=== PATIENT | male | born 1935 | race Caucasian/White ===

== ENCOUNTER 2018-02-21 14:04 | Inpatient (IN) | payer MEDICARE ==
[2018-02-21 14:26] LABS: Actual Bicarbonate (HCO3a) 21.3 mEq/L (22-28); Base Excess (BEa) -4.9 mEq/L (-2.0 to +3.0); CO2 Tension 44.7 mmHg (35.0-45.0); O2 Tension (PaO2) 169.3 mmHg (> 60.0)
[2018-02-21 14:27] LABS: Analyzer IN Cardio ER; Calcium, Ionized 1.1 mmol/L (1.12-1.30); Hemoglobin (Hb) 9.6 g/dL (14.0-18.0); Puncture Site RBA
[2018-02-21 14:28] LABS: ALV-art Gradient 202.625 (0-20)
[2018-02-21] MEDS ORDERED: fentaNYL Citrate/PF 2,000 MCG in Sodium Chloride 0.9% 60 ML IV SCH ×2 (14:30→17:30)
[2018-02-21 14:41] LABS: Bilirubin Negative (Negative); Blood, Urine Large (Negative); Clarity CLOUDY (Clear); Glucose, Urine (Dipstick) Negative (Negative); Leukocyte Small (Negative); Nitrite Negative (Negative); Protein, Urine (Dipstick) 100 mg/dL (Neg-Trace); Specific Gravity, Urine 1.012 (1.002-1.036); Urobilinogen 0.2 mg/dL (0.2-1.0); pH, Urine 5.5 (5.0-9.0)
[2018-02-21 14:45] LABS: Bacteria/HPF None Seen HPF (None Seen); Squamous Epithelial 0-3 HPF (0-3)
[2018-02-21 14:47] LABS: Pathc Cast-AUWi Flag 2.61 (0-2.49); Yeast-AUWi Flag 50.1 (0-25.0)
[2018-02-21 14:58] LABS: INR-International Normal Ratio 1.3; PTT 38.8 SEC (22.9-36.1); Prothrombin Time 16.6 SEC (12.0-14.7)
[2018-02-21 15:01] LABS: Hyaline Casts/LPF 0-3 HYALINE CAST LPF (0-3 Hyaline); Transitional Epithelial 0-3 HPF (0-3); Yeast-All Forms None Seen HPF (None Seen)
[2018-02-21 15:11] LABS: ALT (SGPT) 10 U/L (8-55); AST (SGOT) 17 U/L (5-34); Albumin 2.6 g/dL (3.4-4.8); Alkaline Phosphatase 91 U/L (40-150); Anion Gap 12 mmol/L (10-20); BUN (Urea Nitrogen) 19 mg/dL (8.4-25.7); Bilirubin, Total 0.9 mg/dL (0.2-1.2); CK (CPK) 138 U/L (30-200); Calc. Creatinine Clearance 0 mL/min (70-130); Calcium 7.8 mg/dL (7.8-10.44); Carbon Dioxide 20 mmol/L (23-31); Chloride 109 mmol/L (98-107); Estimated GFR-MDRD 34; Globulin 3.1 g/dL (2.4-3.5); Glucose 171 mg/dL (83-110); Lipase Less than 4 U/L (8-78); Potassium 3.6 mmol/L (3.5-5.1); Protein, Total 5.7 g/dL (5.8-8.1); Sodium 137 mmol/L (136-145)
[2018-02-21 15:13] LABS: #Lymphocytes 0.7 thou/uL (1.20-3.40); #Monocytes 1.1 thou/uL (0.11-0.59); #Neutrophils 10.5 thou/uL (1.40-6.50); %Basophils 0.1 % (0.0-1.0); %Eosinophils 0.2 % (0.0-10.0); %Lymphocytes 5.3 % (21.0-51.0); %Monocytes 8.8 % (0.0-10.0); %Neutrophils 85.6 % (42.0-75.0); Hemoglobin 9.8 g/dL (14.0-18.0); MDiff Complete? YES; Mean Corpuscular HGB CONC 31.8 g/dL (32.0-36.0); Mean Corpuscular Hemoglobin 30.7 pg (27.0-31.0); Mean Corpuscular Volume 96.4 fl (80.0-94.0); Mean Platelet Volume 9.3 fL (7.4-10.4); PLT Morphology Comment Appears Decreased; Platelet Count 111 thou/uL (130-400); Polychromasia SLIGHT = 2-3 cells (100X) (0-2/hpf); RBC Distribution Width 13.3 % (11.5-14.5); Red Blood Cell (RBC) Count 3.19 mill/uL (4.70-6.10); White Blood Cell (WBC) Count 12.3 thou/uL (4.8-10.8)
[2018-02-21 15:19] LABS: CKMB 3.7 ng/mL (0-6.6)
[2018-02-21 15:30] LABS: Troponin I 0.305 ng/mL (< 0.028)
[2018-02-21] MEDS ORDERED: Aspirin 300 MG Suppository ONE (15:34)
[2018-02-21] MEDS ORDERED: Furosemide 40 MG/4 ML VIAL ONE ×2 (15:34→15:35)
[2018-02-21] MEDS ORDERED: Enoxaparin Sodium 80 MG/0.8 ML SYRINGE ONE (15:34)
[2018-02-21] MEDS ORDERED: Enoxaparin Sodium 40 MG/0.4 ML SYRINGE ONE (15:34)
--- NOTE | 2018-02-21 15:35 | RAD ---
FRONTAL RADIOGRAPH CHEST PORTABLE UPRIGHT: DATE: 02/21/18. COMPARISON: 03/22/17. HISTORY: Fever, sepsis, intubated patient. FINDINGS: An endotracheal tube is in place, the distal tip terminating approximately 3.6 cm above the landy. Midline sternotomy wires and mediastinal clips are present. There is no pneumothorax seen. There is hazy increased density in the left base with partial obscuration of the left hemidiaphragm s uggesting left basilar volume loss and/or infectious pneumonitis within the left lower lobe. IMPRESSION: Endotracheal tube in place. Hazy increased density is seen in the left base which could represent in filtrate or volume loss. Followup advised. POS: [facility]
--- NOTE | 2018-02-21 15:53 | RAD ---
FRONTAL RADIOGRAPH CHEST: 02/21/18 at 2:21 p.m. COMPARISON: 02/21/18 at 1:43 p.m. HISTORY: Nausea and vomiting. FINDINGS: Endotracheal tube present in stable position. No pneumothorax is noted. There is pulmonary vascular congestion. Supine imaging is provided, limiting assessment for pneumotho rax and pleural fluid. There is hazy increased density in the left base suggesting nonspecific left basilar volume loss or i nfiltrate. Tubing curls over the neck suggesting a nasogastric tube curling in the hypopharynx. IMPRESSION: Nasogastric tube curls over the neck. Increased density in left base noted. Results called to Dr. Kong at 3:15 p.m., 02/21/18. Code CR POS: [facility]
--- NOTE | 2018-02-21 16:18 | RAD ---
PORTABLE SUPINE CHEST: 02/21/18 HISTORY: Nausea, vomiting. COMPARISON: 02/21/18 at 2:21 p.m. FINDINGS/IMPRESSION: ET tube remains in place. NG tube has been placed and tip is not visualized on this exam. The cardiomegaly with vascular congestion and opacification of both lung bases again noted. No interv al change in the appearance of the chest. POS: [facility]
--- NOTE | 2018-02-21 16:59 | PDOC.FPRHP ---
- History of Present Illness Chief Complaint: confusion History of Present Illness: PCP: Dr. Pedro Luis Dhaliwal, [place], [place] Specialists: Cardiology, Dr. Corcoran. Neurology, Dr. Martinez Ghosh ( [facility]) 82 yo CM w/ PMH of Alzheimer's dementia, pAfib, AAA, CAD s/p 4vCABG, HTN, DM, HLD and recent history of accidental falls presenting as transfer from [facility] due to severe sepsis and established care at this hospital. Pt is accompanied by granddaughter who is MPOA and provides entire HPI. Pt lives at home with a daughter and the granddaughter notes that over the last 2 weeks, he has become progressively more confused. They initially thought it was secondary to a worsening of his dementia. About 1 week ago, the pt had an accidental fall and an additional accidental fall a few days ago. Granddaughter denies LOC or change in mental status at the time. Over the weekend, the pt began developing a fever and symptoms concerning for a UTI. The patient was taken to his PCP this morning and immediately told to present to ER due to fever up to 102, confusion, and abnormal vitals. The granddaughter endorses confusion, fever/ chills, recent falls, and BL lower extremity swelling. At [facility] ED, pt was evaluated by Dr. Kirk Hays. Please refer to paper chart for complete records. In short, pt presented with BP 83/59 HR 116 R 23 O2 sat 86% RA and Tmax 104 rectal. EKG showed afib rate 120s and RBBB. CBC, CMP, lactic acid, BNP, troponin, UA were ordered. Pt was found to have lactate of 4.3 , BNP 3122, WBC 13, and UA suggestive of infection (Nitrite+, LE neg, WBC 10-19 , Squam rare, Bacteria many). CT Head showed no acute process. CXR showed enlarged cardiac silhouette and bibasilar opacities likely atelectasis. Pt was reportedly intubated due to being combative and interfering with medical equipment. Pt was given 2L NS, tylenol 1g, furosemide 80 mg IV, zosyn 4.5g, vancomycin 2.5g, etomidate 38mg, succinylcholine 100mg. At some point, pt removed his ETT and required to be intubated again. He was initially placed on sedation with propofol but could not tolerate it due to hypotension. The patient was then placed on fentanyl. Pt was transferred here due to having established care previously. ED Course: Pt was seen by Dr. Kong. Labs were reordered. Pt was given ASA 300 mg rectal, furosemide 40 mg IV, lovenox 1 mg/kg, levaquin 750 mg, 500 mL NS, and fentanyl 1 mcg/kg/hr. - Allergies/Adverse Reactions Allergies Allergy/AdvReac Type Severity Reaction Status Date / Time epinephrine Allergy Verified 03/23/17 01:04 rosuvastatin Allergy Verified 03/23/17 01:04 Wwyjzre-Mbj-Alk Reductase Allergy Verified 03/23/17 01:04 Inhibitor - Home Medications Medication Instructions Recorded Confirmed Type Aspirin [Aspirin Chewable Tablet] 81 mg PO DAILY 03/23/17 03/23/17 History Atenolol 25 mg PO DAILY 03/23/17 03/23/17 History Cyanocobalamin 1000 MCG/ML VIA 1,000 mg IM Q7DAYS 03/23/17 03/23/17 History [Vitamin B-12] DULoxetine HCl [Duloxetine HCl] 60 mg PO BID 03/23/17 03/23/17 History Donepezil HCl 10 mg PO DAILY 03/23/17 03/23/17 History Dulaglutide [Trulicity] 1.5 mg SC Q7DAYS 03/23/17 03/23/17 History Ezetimibe [Zetia] 10 mg PO DAILY 03/23/17 03/23/17 History Gabapentin 300 mg PO QAM 03/23/17 03/23/17 History Gabapentin 600 mg PO QPM 03/23/17 03/23/17 History Memantine HCl [Namenda XR] 28 mg PO DAILY 03/23/17 03/23/17 History Tramadol HCl 50 mg PO Q6H PRN 03/23/17 03/23/17 History carBAMazepine [carBAMazepine ER] 300 mg PO 03/23/17 03/23/17 History rOPINIRole HCl [Ropinirole ER] 1 tab PO QAM 03/23/17 03/23/17 History rOPINIRole HCl [Ropinirole ER] 3 tab PO QPM 03/23/17 03/23/17 History Levofloxacin [Levaquin] 500 mg PO 0600 #5 tab 03/27/17 Rx - History PMHx: 1. AAA 2. Alzheimer's dementia 3. Nocturnal seizures 4. pAfib 5. History of falls 6. Venous stasis ulcers BL 7. HTN 8. DM2 9. HLD 10. Spinal stenosis 11. CAD s/p 4vCABG 12. OA PSHx: 1. 4vCABG 1997 2. R hip arthroplasty 3. L hip arthroplasty x3 4. Cholecystectomy 5. Appendectomy 6. Hernia repair FHx: Noncontributory Social: Former smoker, denied EtOH and illicit drugs - Review of Systems ROS unobtainable: other (see HPI) - Vital signs BP: 112/81 HR: 86 RR: 20 Tmax: 104 rectal Pox: 99% on SIMV 12/500/50/5 Wt: 127kg - Physical Exam Constitutional: NAD, other (intubated and sedated) HEENT: no scleral icterus, other (ecchymosis to chin and occiptal scalp. ETT secured in place.) Neck: no bruits Heart: normal S1/S2, other (irregularly irregular, distant heart sounds. 2+ edema BLLE up to knees) Lungs: other (distant adventitious breath sounds BL) Abdomen: soft, non-tender, bowel sounds present, other (obese) Neurological: other (GCS 3) Skin: other (venous stasis ulcer RLE, sacral ulcer) Heme/Lymphatic: other (multiple areas of ecchymosis) FMR H&P: Results - Labs Result Diagrams: 02/22/18 06:12 02/22/18 04:20 Lab results: WBC 12.3 thou/uL (4.8-10.8) H 02/21/18 14:26 Hgb 9.8 g/dL (14.0-18.0) L 02/21/18 14:26 Hct 30.7 % (42.0-52.0) L 02/21/18 14:26 MCV 96.4 fl (80.0-94.0) H 02/21/18 14:26 Plt Count 111 thou/uL (130-400) L 02/21/18 14:26 Neutrophils % 85.6 % (42.0-75.0) H 02/21/18 14:26 ABG pH 7.30 (7.35-7.45) L 02/21/18 14:22 ABG pCO2 44.7 mmHg (35.0-45.0) 02/21/18 14:22 ABG pO2 169.3 mmHg (> 60.0) H 02/21/18 14:22 Sodium 137 mmol/L (136-145) 02/21/18 14:27 Potassium 3.6 mmol/L (3.5-5.1) 02/21/18 14:27 Chloride 109 mmol/L (98-107) H 02/21/18 14:27 Carbon Dioxide 20 mmol/L (23-31) L 02/21/18 14:27 BUN 19 mg/dL (8.4-25.7) 02/21/18 14:27 Creatinine 1.92 mg/dL (0.6-1.3) H 02/21/18 14:27 Glucose 171 mg/dL (83-110) H 02/21/18 14:27 Lactic Acid 3.3 mmol/L (0.5-2.2) H 02/21/18 14:40 Calcium 7.8 mg/dL (7.8-10.44) 02/21/18 14:27 Total Bilirubin 0.9 mg/dL (0.2-1.2) 02/21/18 14:27 AST 17 U/L (5-34) 02/21/18 14:27 ALT 10 U/L (8-55) 02/21/18 14:27 Alkaline Phosphatase 91 U/L (40-150) 02/21/18 14:27 Creatine Kinase 138 U/L (30-200) 02/21/18 14:27 CK-MB (CK-2) 3.7 ng/mL (0-6.6) 02/21/18 14:26 B-Natriuretic Peptide 3670.2 pg/mL (0-100) H 02/21/18 14:26 Serum Total Protein 5.7 g/dL (5.8-8.1) L 02/21/18 14:27 Albumin 2.6 g/dL (3.4-4.8) L 02/21/18 14:27 Lipase Less than 4 U/L (8-78) L 02/21/18 14:27 Urine Ketones Negative mg/dL (Negative) 02/21/18 14:11 Urine Blood Large (Negative) H 02/21/18 14:11 Urine Nitrite Negative (Negative) 02/21/18 14:11 Ur Leukocyte Esterase Small (Negative) H 02/21/18 14:11 Urine RBC 11-20 HPF (0-3) H 02/21/18 14:11 Urine WBC 11-20 HPF (0-3) H 02/21/18 14:11 Ur Squamous Epith Cells 0-3 HPF (0-3) 02/21/18 14:11 Urine Bacteria None Seen HPF (None Seen) 02/21/18 14:11 - EKG Interpretation EKG: Afib with RVR, rate 104. RBBB. QT 394ms. FMR H&P: A/P - Problem List (1) Severe sepsis Current Visit: Yes Status: Acute Code(s): A41.9 - SEPSIS, UNSPECIFIED ORGANISM; R65.20 - SEVERE SEPSIS WITHOUT SEPTIC SHOCK Assessment and Plan: -pt presented with fever, tachycardia, hypotension, altered mentation, leukocytosis, lactic acidosis and UA suggestive of infection -pt has received 2.5L NS bolus to this point. Continue LR@125. -pt has received vancomycin, zosyn, and levaquin and is covered for 24 hrs considering his kidney function. With UTI being the most likely source, will continue zosyn. With concern of possible PNA on CXR, will check urine strep antigen and procalcitonin. Blood and urine cultures pending. -pt currently intubated and on sedation. Continue ventilatory support and sedation per pulmonology, recommendations greatly appreciated. -trend lactate (2) Lactic acidosis Current Visit: Yes Status: Resolved Code(s): E87.2 - ACIDOSIS Assessment and Plan: -IVF and trend (3) UTI (urinary tract infection) Current Visit: Yes Status: Acute Qualifiers: Urinary tract infection type: site unspecified Comment: history of pansensitive proteus Assessment and Plan: -per above (4) Acute exacerbation of CHF (congestive heart failure) Current Visit: Yes Status: Acute Code(s): I50.9 - HEART FAILURE, UNSPECIFIED Qualifiers: Heart failure type: unspecified Qualified Code(s): I50.9 - Heart failure, unspecified Assessment and Plan: -pt has a history of CAD and afib but no known history of CHF. pt presents with pulmonary vascular congestion on CXR, lower extremity edema, and BNP > 3000. -consult cardiology, recommendations greatly appreciated -TTE ordered -pt has received 120mg lasix IV thus far, continue lasix 40 mg IV BID starting tomorrow -strict I/O's and daily weights (5) Atrial fibrillation with RVR Current Visit: Yes Status: Acute Code(s): I48.91 - UNSPECIFIED ATRIAL FIBRILLATION Assessment and Plan: -known history of pAfib on atenolol 25 mg daily -pt received therapeutic lovenox in ED -currently in afib but rate 80-120 -continue prophylactic lovenox in AM -cardiology recommendations greatly appreciated (6) Elevated troponin Current Visit: Yes Status: Acute Code(s): R74.8 - ABNORMAL LEVELS OF OTHER SERUM ENZYMES Assessment and Plan: -likely demand ischemia, trend cardiac enzymes (7) Nocturnal seizures Current Visit: Yes Status: Acute Code(s): G40.909 - EPILEPSY, UNSP, NOT INTRACTABLE, WITHOUT STATUS EPILEPTICUS Assessment and Plan: -continue home tegretol and check tegretol level (8) CKD (chronic kidney disease) stage 3, GFR 30-59 ml/min Current Visit: Yes Status: Acute Code(s): N18.3 - CHRONIC KIDNEY DISEASE, STAGE 3 (MODERATE) (9) Macrocytic anemia Current Visit: Yes Status: Acute Code(s): D53.9 - NUTRITIONAL ANEMIA, UNSPECIFIED Assessment and Plan: -slightly decreased from baseline -obtain folate, B12 and continue to monitor (10) Diabetes mellitus Current Visit: Yes Status: Acute Code(s): E11.9 - TYPE 2 DIABETES MELLITUS WITHOUT COMPLICATIONS Assessment and Plan: -accuchecks and SSI (11) Alzheimer's dementia Current Visit: Yes Status: Acute Code(s): G30.9 - ALZHEIMER'S DISEASE, UNSPECIFIED; F02.80 - DEMENTIA IN OTH DISEASES CLASSD ELSWHR W/O BEHAVRL DISTURB - Plan Disposition/LOS: Patient admitted under inpatient status for anticipated length of stay > 2 midnights. CODE STATUS is DNR per patient's MPOA. Continue to monitor closely. Attending Addendum - Attending Addendum Date/Time: 02/22/18 1112 I personally evaluated the patient and discussed the management with Dr. Aguirre I agree with the History, Examination, Assessment and Plan documented above with any addition or exceptions noted below. Severe sepsis without evidence of shock. Currently intubated. Tolerating vent well. Appears to likely be urinary source. Has been broadly covered with emperic antibiotics. Will consider de-scaling in AM with trend of labs and prelim cultures. Pulm consulted. Continue IVFs. Concern with worsening physical condition due to frequent falls. Dispo planning to be discussed with family throughout stay. Monitor closely. Yousif
[2018-02-21] MEDS ORDERED: Ondansetron ODT 4 MG TAB PO PRN (17:12)
[2018-02-21] MEDS ORDERED: Dextrose 50% Abboject 50 ML SYRINGE SLOW IVP PRN (17:12)
[2018-02-21] MEDS ORDERED: Ondansetron HCl/PF 4 MG/2 ML Vial IVP PRN (17:12)
[2018-02-21] MEDS ORDERED: Ventilator Sedation Protocol 1 EACH FS ONE (17:12)
[2018-02-21] MEDS ORDERED: CCU Electrolyte Replacement 1 EACH FS ONE (17:12)
[2018-02-21] MEDS ORDERED: HumaLOG 300 UNITS/3 ML VIAL SC PRN ×2 (17:12)
[2018-02-21] MEDS ORDERED: Dextrose 5% in Water 1,000 ML IV PRN (17:12)
[2018-02-21] MEDS ORDERED: Acetaminophen 650 MG Suppository PR PRN (17:12)
[2018-02-21] MEDS ORDERED: Potassium Phosphate 15 MMOL in Sodium Chloride 0.9% 250 ML 250 ML IV PRN (17:19)
[2018-02-21] MEDS ORDERED: Potassium Chloride 40 MEQ in Sodium Chloride 0.9% 250 ML 250 ML IVPB PRN (17:19)
[2018-02-21] MEDS ORDERED: Magnesium 2 GM/NS 0.9% 100 ML 2 GM in Premix Bag 1 BAG IVPB PRN (17:19)
[2018-02-21] MEDS ORDERED: Potassium Phosphate 9 MMOL in Sodium Chloride 0.9% 100 ML IVPB PRN (17:19)
[2018-02-21] MEDS ORDERED: Potassium Chloride 40 MEQ in Premix Bag 1 BAG IVPB PRN (17:19)
[2018-02-21] MEDS ORDERED: Potassium Chloride 20 MEQ TAB PO PRN (17:19)
[2018-02-21] MEDS ORDERED: Potassium Phosphate 12 MMOL in Sodium Chloride 0.9% 250 ML 250 ML IV PRN (17:19)
[2018-02-21] MEDS ORDERED: CCU ELECTROLYTE REPLACEMENT PROTOCOL FS PRN (17:19)
[2018-02-21] MEDS ORDERED: Magnesium Oxide 400 MG TAB PO PRN ×2 (17:19)
[2018-02-21] MEDS ORDERED: DISCONTINUE PREVIOUS NARCOTIC PAIN MEDICATIONS AND BENZODIAZEPINES FS SCH (17:27)
[2018-02-21] MEDS ORDERED: Propofol BOLUS 1,000 MG/100 ML VIAL IV PRN (17:27)
[2018-02-21] MEDS ORDERED: Propofol 1,000 MG/100 ML VIAL IV PRN (17:27)
[2018-02-21] MEDS ORDERED: Lorazepam 2 MG/ML VIAL SLOW IVP PRN ×2 (17:27→21:44)
[2018-02-21] MEDS ORDERED: Fentanyl BOLUS 250 ML IVPB PRN (17:27)
[2018-02-21] MEDS ORDERED: Morphine 4 MG/ML VIAL SLOW IVP PRN (17:27)
[2018-02-21] MEDS ORDERED: Piperacillin/Tazobactam 2.25 GM in Sodium Chloride 0.9% 100 ML IVPB SCH (18:00)
[2018-02-21 18:05] LABS: Strep pneumo Urine Ag NEGATIVE (NEGATIVE)
[2018-02-21] MEDS: carBAMazepine 200 MG TAB PER TUBE SCH (18:20)
[2018-02-21] MEDS ORDERED: Lactated Ringer's 1,000 ML IV SCH ×2 (18:30→18:31)
[2018-02-21 18:35] LABS: Carbamazepine-Tegretol 7.6 ug/mL (4.0-12.0)
[2018-02-21] MEDS: Piperacillin/Tazobactam 2.25 GM in Sodium Chloride 0.9% 100 ML IVPB SCH ×2 (18:52→23:39)
[2018-02-21] MEDS ORDERED: Digoxin 0.5 MG/2 ML AMP SLOW IVP SCH (20:15)
[2018-02-21] MEDS: Heparin 5,000 UNITS/ML VIAL SC SCH (20:33)
[2018-02-21] MEDS: Acetaminophen 325 MG TAB PO PRN (20:55)
[2018-02-21] MEDS ORDERED: Prevnar 13-Val Conj/PF 0.5 ML SYRINGE IM ONE (21:00)
[2018-02-21] MEDS ORDERED: Lorazepam 2 MG/ML VIAL SLOW IVP SCH (21:45)
[2018-02-21] MEDS: Lorazepam 2 MG/ML VIAL SLOW IVP PRN ×2 (23:37→23:53)
[2018-02-22] MEDS: Labetalol HCl 100 MG/20 ML VIAL SLOW IVP PRN (00:01)
--- NOTE | 2018-02-22 00:06 | CON ---
DATE OF CONSULTATION: 02/21/2018 SERVICE: Pulmonary Medicine. REASON FOR CONSULTATION: Respiratory failure. HISTORY OF PRESENT ILLNESS: The patient is an 82-year-old white male with past medical history significant for advanced dementia. Whenever he comes into the hospital, he becomes extraordinarily agitated. He pulls on lines and tubes. He removes his own Mary catheters. He was in his usual state of health until about a week and a half ago. His baseline is that he can barely walk with assistance. He has significant dyspnea on exertion, and back pain that limits his mobility. He is essentially confined to a bed or a chair. In this setting , he started having altered mentation for a period of a week. This sometimes occurs, but he started having elevated temperatures. He presented to the primary care physician's office and was obtunded and nonverbal. As such, he was transitioned to the emergency room. At that location, he was having absolutely no difficulties with respiration. That being said, he became a little bit agitated. Ultimately, he was sedated and intubated for ease of delivering needed IV medications. PAST MEDICAL HISTORY: 1. Dementia, advanced. 2. Nocturnal seizures. 3. Atrial fibrillation, permanent. 4. Type 2 diabetes mellitus. 5. Hypertension. 6. Dyslipidemia. 7. Spinal stenosis. 8. Coronary artery disease. 9. Osteoarthritis. 10. History of multiple falls. 11. Abdominal aortic aneurysm. PAST SURGICAL HISTORY: 1. Coronary artery bypass graft x4 vessels in 1997. 2. Right hip arthroplasty. 3. Left hip arthroplasty x3. 4. Cholecystectomy. 5. Appendectomy. 6. Herniorrhaphy. FAMILY HISTORY: Noncontributory. SOCIAL HISTORY: He has a remote history of extensive smoking. He does not use any alcohol or illicit drugs. He is cared for by his granddaughter. He lives in a home, but has assistance basically 11/04. He and his are both suffered with dementia. He can occasionally be aggressive. REVIEW OF SYSTEMS: This cannot be obtained as the patient is currently intubated and sedated. PHYSICAL EXAMINATION: VITAL SIGNS: Afebrile, pulse 107, blood pressure 125/80, respirations 24, saturation 95% on 37% FiO2 and a PEEP of 5. HEENT: Normocephalic, atraumatic. Sclerae are white, conjunctivae pink. Oral and nasal mucosa is moist without lesions. LUNGS: Decent air entry bilaterally. There is not much of a prolonged expiratory phase, wheezing, rhonchi, or crackles. HEART: Normal rate, regular. ABDOMEN: Soft, nontender, nondistended. Bowel sounds are positive. MUSCULOSKELETAL: No cyanosis or clubbing. There are 1-2+ pitting in the bilateral lower extremities with chronic ulcers present on the medial aspects of both legs. GENITOURINARY: Mary catheter in place. NEUROLOGIC: Grossly nonfocal. LABORATORY DATA: WBC 12.3, hemoglobin 9.8, platelets 111,000. INR 1.3. PH of 7.30, pCO2 of 44, pO2 of 169 on 60% FiO2 at that time. Creatinine 1.92, which is slightly above baseline. Basic metabolic profile and liver function studies are otherwise unremarkable. BNP 3600. Troponin 0.3. Lipase less than 4. Urinalysis is positive for blood, and leukocyte esterase, but is not too terribly dirty. Urine strep antigen is unremarkable. IMAGING: Chest x-ray demonstrates cardiomegaly and pulmonary vascular congestion with opacification of both lung bases. ET tube is in good position. ASSESSMENT: 1. Acute hypoxic respiratory failure. 2. Severe sepsis. 3. Non-ST elevation myocardial infarction. 4. Chronic kidney disease with possible acute component. 5. Dementia, advanced. 6. Debility. PLAN: We will provide the patient with supportive care. We will try to minimize fluids to the best of our ability. We will consider him for extubation in a short period of time. Antibiotics will ultimately be directed at whatever we find from our cultures which are currently pending. Multiple ventilator adjustments have been made in order to maximize patient comfort. We will try to minimize sedation without allowing him to wake up and be too terribly agitated. Critical care time: 30 minutes. MTDD
--- NOTE | 2018-02-22 02:12 | CON ---
DATE OF CONSULTATION: 02/21/2018 HISTORY: Miki Caraballo is an 82-year-old white male admitted with weakness and mental status changes, transferred from [facility] in [place]. In 08/1998 , he underwent CABG here by Dr. Mina. His last cardiac evaluation was an echocardiogram in 10/2016, which revealed ejection fraction of 40%-45% with moderate mitral regurgitation, mild tricuspid regurgitation, and evidence for diastolic dysfunction. He also underwent Lexiscan Cardiolite testing in 10/2016 , which revealed mild ischemia with scar of the inferior and lateral wall corresponding to previous total occlusion of the right coronary artery that was found at catheterization prior to bypass. He was last seen by Dr. Corcoran in 09/2017 for surgical clearance prior to an ENT balloon procedure using topical anesthesia. Recently, he has been having accidental falls and increased weakness. He has also had increasing confusion over the last 2 weeks. He again developed a fever , went to see his primary physician this morning, had a fever up to 102 and was confused, and sent to the emergency room. His blood pressure was 83/59, heart rate 116 with chronic atrial fibrillation. Urinalysis was suggestive of urinary tract infection. He was intubated due to being combative and interfering with medical equipment. He was given Zosyn 4.5 grams, vancomycin 2.5, and placed on propofol sedation after he self-extubated himself requiring re-intubation. At present time, the patient is sedated and cannot give a history. PAST MEDICAL HISTORY: Remarkable for coronary artery disease, hyperlipidemia, hypertension, diabetes, chronic atrial fibrillation, spinal stenosis, Alzheimer dementia, abdominal aortic aneurysm. OPERATIONS: Include CABG in 1997, right hip replacement, left hip replacement x3, cholecystectomy, appendectomy, hernia repair, tonsillectomy. MEDICATIONS: Aspirin 81 daily, atenolol 25 mg daily, donepezil 10 mg daily, Trulicity 1.5 mg subcutaneously every 7 days, duloxetine 60 b.i.d., Zetia 10 mg daily, gabapentin 300 mg q.a.m. and 600 mg q.p.m., Levaquin 500 daily, Namenda 28 daily, ropinirole ER 1 tablet q.a.m. and 3 tablets q.p.m., tramadol 50 mg q.6. hours p.r.n. ALLERGIES: STATINS cause myalgias, EPINEPHRINE, SALICYLATES. SOCIAL HISTORY: Smoked in the past. REVIEW OF SYSTEMS: Unobtainable due to the patient being sedated and intubated. PHYSICAL EXAMINATION: VITAL SIGNS: Blood pressure 123/87, pulse 117, atrial fibrillation on the monitor. HEENT: PERRL. CHEST: Clear. CARDIAC: S1 and S2 are normal without any S3, S4, or murmurs. ABDOMEN: No bowel sounds. No obvious tenderness. EXTREMITIES: Revealed multiple ecchymosis on the knees with trace pretibial edema. NEUROLOGIC: The patient is sedated. SKIN: Warm and dry. LABORATORY DATA: EKG revealed atrial fibrillation with rapid ventricular response 104 per minute and right bundle-branch block. Hemoglobin 9.8, hematocrit 30.7, white count 12,300, platelets 111,000. INR 1.3. A pH 7.30, pCO2 of 44.7, pO2 169.3. Sodium 137, potassium 3.6, chloride 109, carbon dioxide 20, BUN 19, creatinine 1.92. Troponin I is 0.310. BNP 3670.2. Urinalysis revealed 11-20 rbc's, 11-20 wbc's, large blood (no bacteria were seen). IMPRESSION: 1. Probable urosepsis with evidence for urinary tract infection, elevated temperature and hypotension. 2. Multiple falls recently. 3. Chronic atrial fibrillation. 4. Status post coronary artery bypass graft. 5. Elevated BNP. 6. Chronic kidney disease. 7. Hyperlipidemia. 8. Statin intolerance. 9. Alzheimer disease. 10. Diabetes. PLAN: Blood pressure medicines will be withheld at this time due to his hypotension. For better rate control of his atrial fibrillation, I will give him 1 dose of digoxin 0.5 and he may need to be supplemented with further doses. With his elevated BNP, echocardiogram will be obtained to re-evaluate his left ventricular function. The patient currently is DNR status. PARRISH
[2018-02-22] MEDS: Lorazepam 2 MG/ML VIAL SLOW IVP PRN ×2 (02:40→11:51)
[2018-02-22] MEDS ORDERED: levETIRAcetam In NaCl (Iso-Os) 1,000 MG in Premix Bag 1 BAG IVPB SCH (02:45)
[2018-02-22 05:26] LABS: ALT (SGPT) 14 U/L (8-55); AST (SGOT) 33 U/L (5-34); Albumin 2.9 g/dL (3.4-4.8); Alkaline Phosphatase 101 U/L (40-150); Anion Gap 17 mmol/L (10-20); BUN (Urea Nitrogen) 25 mg/dL (8.4-25.7); Bilirubin, Total 0.6 mg/dL (0.2-1.2); Calc. Creatinine Clearance 48 mL/min (70-130); Calcium 8.4 mg/dL (7.8-10.44); Carbon Dioxide 15 mmol/L (23-31); Chloride 106 mmol/L (98-107); Estimated GFR-MDRD 29; Globulin 4.2 g/dL (2.4-3.5); Glucose 102 mg/dL (83-110); Potassium 4.4 mmol/L (3.5-5.1); Protein, Total 7.1 g/dL (5.8-8.1); Sodium 134 mmol/L (136-145)
[2018-02-22] MEDS: Furosemide 40 MG/4 ML VIAL SLOW IVP SCH ×2 (05:31→13:26)
[2018-02-22] MEDS: Piperacillin/Tazobactam 2.25 GM in Sodium Chloride 0.9% 100 ML IVPB SCH ×3 (05:32→17:10)
--- NOTE | 2018-02-22 06:36 | PDOC.FM ---
- Subjective Subjective: Pt seen at bedside in NAD, intubated and sedated. No family at bedside. Overnight, pt experienced seizure like activity requiring ativan and keppra. - Objective MAR Reviewed: Yes Vital Signs & Weight: Vital Signs (12 hours) Temp Pulse Resp BP Pulse Ox 02/22/18 06:00 15 02/22/18 04:00 14 02/22/18 02:00 13 02/22/18 00:01 122 H 196/97 H 02/22/18 00:00 103.0 F H 13 02/21/18 22:00 16 02/21/18 20:32 130 H 02/21/18 20:00 100.8 F H 122 H 18 98 Weight Admit Weight 127.7 kg Weight 126.5 kg Most Recent Monitor Data Heart Rate from ECG 104 NIBP 130/78 NIBP BP-Mean 97 Respiration from ECG 18 SpO2 100 I&O: 02/20/18 02/21/18 02/22/18 06:59 06:59 06:59 Intake Total 860.2 Output Total 550 Balance 310.2 Result Diagrams: 02/22/18 06:12 02/22/18 04:20 <Blane Aguirre M - Last Filed: 02/22/18 07:56> - Objective Vital Signs & Weight: Vital Signs (12 hours) Temp Pulse Resp BP Pulse Ox 02/22/18 09:49 15 02/22/18 08:00 98.2 F 109 H 12 92 L 02/22/18 06:36 102 H 138/74 02/22/18 06:00 15 02/22/18 04:00 14 02/22/18 02:00 13 02/22/18 00:01 122 H 196/97 H 02/22/18 00:00 103.0 F H 13 Weight Admit Weight 127.7 kg Weight 126.5 kg Most Recent Monitor Data Heart Rate from ECG 106 NIBP 141/103 NIBP BP-Mean 123 Respiration from ECG 16 SpO2 77 I&O: 02/21/18 02/22/18 02/23/18 06:59 06:59 06:59 Intake Total 860.2 64 Output Total 550 365 Balance 310.2 -301 Result Diagrams: 02/22/18 06:12 02/22/18 04:20 <Jerry Lizama R - Last Filed: 02/22/18 10:30> Phys Exam - Physical Examination Constitutional: NAD intubated and sedated HEENT: PERRLA distant adventitious breath sounds BL Cardiovascular: no significant murmur irregularly irregular Gastrointestinal: soft, non-tender Musculoskeletal: pulses present, edema present trace edema BL LE <Blane Aguirre - Last Filed: 02/22/18 07:56> Dx/Plan (1) Severe sepsis Code(s): A41.9 - SEPSIS, UNSPECIFIED ORGANISM; R65.20 - SEVERE SEPSIS WITHOUT SEPTIC SHOCK Status: Acute Plan: -pt presented with fever, tachycardia, hypotension, altered mentation, leukocytosis, elevated procalcitonin, lactic acidosis and UA suggestive of infection -pt responded well to IVF and did not require pressor support. IVF discontinued overnight due to pt's CHF and fluid overload. -pt continued on zosyn but received vancomyin and levaquin on day of arrival as well -initial blood cx from outside facility show G- rods -pt was intubated secondary to agitation and has been continued on ventilatory support and sedation -pulmonology recommendations greatly appreciated (2) UTI (urinary tract infection) Status: Acute QualifierTitle: Urinary tract infection type: site unspecified Plan: -initial UA at outside facility showed nitrites, WBCs, & many bacteria -continue zosyn and await urine culture results (3) Acute exacerbation of CHF (congestive heart failure) Code(s): I50.9 - HEART FAILURE, UNSPECIFIED Status: Acute QualifierTitle: Heart failure type: unspecified Qualified Code(s): I50.9 - Heart failure, unspecified Plan: -pt has a history of CAD and afib but no known history of CHF. pt presents with pulmonary vascular congestion on CXR, lower extremity edema, and BNP > 3000. -cardiology recommendations greatly appreciated -TTE ordered -pt received 120mg lasix IV on day of arrival, continue lasix 40 mg IV BID -strict I/O's and daily weights (4) Nocturnal seizures Code(s): G40.909 - EPILEPSY, UNSP, NOT INTRACTABLE, WITHOUT STATUS EPILEPTICUS Status: Acute Plan: -granddaughter reports history of nocturnal seizures well controlled on home tegretol. tegretol level therapeutic. pt reportedly missed a few doses of tegretol over the last couple of days. -pt experienced seizure activity overnight despite tegretol administration, requiring ativan and 1 g of keppra IV -continue to monitor closely and consider neurology consult if pt continues to experience seizure activity (5) Atrial fibrillation with RVR Code(s): I48.91 - UNSPECIFIED ATRIAL FIBRILLATION Status: Acute Plan: -chronic afib -rate overnight around 100 -pt was not on anticoagulation outpt, likely due to baseline mental status, functional capacity, and fall risk -cardiology recommendations greatly appreciated (6) Elevated troponin Code(s): R74.8 - ABNORMAL LEVELS OF OTHER SERUM ENZYMES Status: Acute Plan: -likely due to demand ischemia vs NSTEMI -cardiology recommendations appreciated (7) CKD (chronic kidney disease) stage 3, GFR 30-59 ml/min Code(s): N18.3 - CHRONIC KIDNEY DISEASE, STAGE 3 (MODERATE) Status: Acute Plan: -creatinine and GFR near baseline -overnight, UOP was inadequate at 10-15cc/hr -with first dose of lasix this AM, UOP 180 in 1 hr -continue to monitor closely (8) Diabetes mellitus Code(s): E11.9 - TYPE 2 DIABETES MELLITUS WITHOUT COMPLICATIONS Status: Acute Plan: -continue accuchecks and SSI (9) Alzheimer's dementia Code(s): G30.9 - ALZHEIMER'S DISEASE, UNSPECIFIED; F02.80 - DEMENTIA IN OTH DISEASES CLASSD ELSWHR W/O BEHAVRL DISTURB Status: Acute Plan: -at baseline, pt has advanced Alzheimer's dementia - Plan Plan: disposition: Guarded. Continue zosyn and await culture results. TTE pending. Specialist recommendations greatly appreciated. Continue to monitor closely. <Blane Aguirre - Last Filed: 02/22/18 07:56> Attending Addendum - Attending Addendum Date/Time: 02/22/18 2237 I personally evaluated the patient and discussed the management with Dr. Aguirre. I agree with the History, Examination, Assessment and Plan documented above with any addition or exceptions noted below. Patient intubated at the time of my exam, but plans in place to extubate. Currently on SBT and doing well with it. He is being treated for severe sepsis 2 /2 GNR bacteremia (from outside blood cx) due to UTI. Currently on Zosyn, and should be appropriate coverage so long as MDR organism not involved. Continue this and await final cultures. He did spike 103F fever overnight, will monitor fever curve. WBC continues to be normal. He had minimal UOP overnight and kidney values increasing, and I suspect that patient is still fluid down from this serious infection. I recommend IV fluids at this time with the understanding of having a net negative fluid balance upon discharge. Continue to keep close watch on fluid status 2/2 new onset heart failure. Cardiology on board. Await further recommendations. Due to his GNR bacteremia, will need to be cognizant of possibility for vegetations. <Jerry Lizama R - Last Filed: 02/22/18 10:30>
[2018-02-22 06:55] LABS: #Lymphocytes 0.8 thou/uL (1.20-3.40); #Monocytes 0.8 thou/uL (0.11-0.59); #Neutrophils 8.2 thou/uL (1.40-6.50); %Basophils 0.1 % (0.0-1.0); %Eosinophils 0.2 % (0.0-10.0); %Lymphocytes 7.7 % (21.0-51.0); %Monocytes 8.2 % (0.0-10.0); %Neutrophils 83.9 % (42.0-75.0); Mean Corpuscular HGB CONC 31.4 g/dL (32.0-36.0); Mean Corpuscular Hemoglobin 30.5 pg (27.0-31.0); Mean Corpuscular Volume 97.1 fl (80.0-94.0); Mean Platelet Volume 9.5 fL (7.4-10.4); Platelet Count 86 thou/uL (130-400); RBC Distribution Width 13.5 % (11.5-14.5); White Blood Cell (WBC) Count 9.7 thou/uL (4.8-10.8)
[2018-02-22 07:03] LABS: Magnesium 1.9 mg/dL (1.6-2.6); Phosphorus 3.9 mg/dL (2.3-4.7)
[2018-02-22 07:07] LABS: Actual Bicarbonate (HCO3a) 20.9 mEq/L (22-28); Base Excess (BEa) -4.9 mEq/L (-2.0 to +3.0); CO2 Tension 41.2 mmHg (35.0-45.0); Hematocrit-ABG 36.4 % (42.0-52.0); pH, Arterial 7.32 (7.35-7.45)
[2018-02-22 07:08] LABS: Calcium, Ionized 1.2 mmol/L (1.12-1.30); Hemoglobin (Hb) 10.1 g/dL (14.0-18.0); Peep/CPAP 5.5 cmH2O; Puncture Site RRA
[2018-02-22] MEDS: carBAMazepine 200 MG TAB PER TUBE SCH ×2 (08:36→16:34)
[2018-02-22] MEDS: Pantoprazole 40 MG VIAL IVP SCH (08:37)
[2018-02-22] MEDS: Heparin 5,000 UNITS/ML VIAL SC SCH ×2 (08:37→19:23)
[2018-02-22] MEDS ORDERED: Enoxaparin Sodium 30 MG/0.3 ML SYRINGE SC SCH (09:00)
--- NOTE | 2018-02-22 09:56 | PRG ---
DATE OF SERVICE: 02/22/2018 SERVICE: Pulmonary Medicine. INTERVAL HISTORY: The patient is doing fine from a cardiovascular and respiratory standpoint. Overnight, he had a seizure. That being said, these are fairly routine for him. He cannot provide any additional elements of the history. PHYSICAL EXAMINATION: VITAL SIGNS: Afebrile, currently with a T-max overnight of 103.0, pulse 87, blood pressure 135/82, respirations 13, saturation 93% on 21% FiO2 and a PEEP of 5. HEENT: Normocephalic, atraumatic. Sclerae are white, conjunctivae pink. Oral mucosa is moist without lesions. LUNGS: Decent air entry without prolonged expiratory phase, wheezing, rhonchi or crackles. HEART: Normal rate and regular. ABDOMEN: Soft, nontender, nondistended. Bowel sounds are positive. MUSCULOSKELETAL: No cyanosis or clubbing. There is no pitting in the bilateral lower extremities. NEUROLOGIC: Grossly nonfocal. LABORATORY DATA: WBC 9.7, hemoglobin 14.0, platelets 86,000. INR 1.3. PH 7.32 , pCO2 41 and pO2 81. Creatinine 2.17, which is roughly stable. Basic metabolic profile and liver function studies are essentially unremarkable otherwise. Magnesium and phosphorus fall within the normal limits. Troponin 0.33. Urinalysis is positive for red blood cells and white blood cells. We received notification that he had gram negative rods growing in 2 out of 2 blood cultures done at [facility]. Blood cultures x2 are negative here. Urine culture is negative. ASSESSMENT: 1. Acute hypoxic respiratory failure, resolved. 2. Severe sepsis secondary to gram-negative susanne bacteremia. 3. Non-ST elevation myocardial infarction. 4. Chronic kidney disease with possible acute component. 5. Dementia, advanced. 6. Debility. DISCUSSION AND PLAN: I will put him on a spontaneous breathing trial. If he meets criteria, extubation will be considered. Mary catheter will be removed so that he does not remove it on our behalf. We will also discontinue as many interventions as possible so as to minimize his agitation which he is apparently well known for. Pulmonary or Critical Care will continue to follow along. As soon as it is feasible, we will proceed with extubation. CRITICAL CARE TIME: 30 minutes. PARRISH
[2018-02-22] MEDS: Haloperidol Lactate 5 MG/ML VIAL IM PRN (11:51)
[2018-02-22] MEDS: Diltiazem HCl 125 MG, Admixture Fee 1 EACH in Sodium Chloride 0.9% 100 ML IVPB SCH (12:46)
[2018-02-22] MEDS: Acetaminophen 325 MG TAB PO PRN (20:06)
--- NOTE | 2018-02-22 22:42 | PDOC.CTH ---
Cardiology Progress Note - Subjective Patient intubated/sedated. Converted to AF with RVR. Fever resolved. Started on cardizem gtt. - ROS not able to obtain ROS - Objective Vital Signs Temp Pulse Resp BP Pulse Ox 02/22/18 22:00 100.6 F H 17 02/22/18 20:00 100.5 F H 115 H 16 99 02/22/18 19:00 100.5 F H 02/22/18 17:54 18 02/22/18 15:57 99.4 F 17 02/22/18 15:05 126 H 150/87 H 02/22/18 14:00 17 02/22/18 12:20 126 H 185/109 H 02/22/18 11:57 99.4 F 16 Admit Weight 281 lb 8.485 oz Weight 278 lb 14.156 oz 02/21/18 02/22/18 02/23/18 06:59 06:59 06:59 Intake Total 860.2 553.6 Output Total 550 750 Balance 310.2 -196.4 - Physical Examination Lungs: CTA Heart: other: (irr) Abdomen: NT/ND Extremities: other: (multiple areas of bruising secondary to previous falls) - Telemetry Telemetry Rhythm: AFib; rate 115-120 - Labs Result Diagrams: 02/22/18 06:12 02/22/18 04:20 Troponin/CKMB CK-MB (CK-2) 3.7 ng/mL (0-6.6) 02/21/18 14:26 Troponin I 0.330 ng/mL (< 0.028) H* 02/21/18 20:29 - Assessment/Plan 1. Urosepsis 2. Elevated trop - secondary to #1. 3. Paroxysmal AF with RVR - continue cardizem gtt. Off OAC at home secondary to falls. 4. HTN - hypotensive with early intubation and presentation. Then hypertensive today. Now improved after cardizem gtt 5. Alzheimer's disease
[2018-02-23] MEDS: Piperacillin/Tazobactam 2.25 GM in Sodium Chloride 0.9% 100 ML IVPB SCH ×4 (00:14→17:29)
[2018-02-23] MEDS: Furosemide 40 MG/4 ML VIAL SLOW IVP SCH (05:07)
--- NOTE | 2018-02-23 06:32 | PDOC.FM ---
- Subjective Subjective: Pt seen at bedside in NAD, intubated and sedated. No family at bedside. Pt converted into afib with RVR yesterday afternoon and required initiation of diltiazem gtt. Pt had tmax of 100.6. Otherwise, SERGIO overnight. - Objective MAR Reviewed: Yes Vital Signs & Weight: Vital Signs (12 hours) Temp Pulse Resp Pulse Ox 02/23/18 05:00 98.8 F 02/23/18 04:00 13 02/23/18 02:00 13 02/23/18 00:00 99.0 F 15 02/22/18 22:00 100.6 F H 17 02/22/18 20:00 100.5 F H 115 H 16 99 02/22/18 19:00 100.5 F H Weight Admit Weight 127.7 kg Weight 123.5 kg Most Recent Monitor Data Heart Rate from ECG 78 NIBP 138/82 NIBP BP-Mean 110 Respiration from ECG 13 SpO2 100 I&O: 02/21/18 02/22/18 02/23/18 06:59 06:59 06:59 Intake Total 860.2 1211.9 Output Total 550 1300 Balance 310.2 -88.1 Result Diagrams: 02/23/18 04:52 02/23/18 04:52 <Blane Aguirre - Last Filed: 02/23/18 09:07> - Objective Vital Signs & Weight: Vital Signs (12 hours) Temp Pulse Resp Pulse Ox 02/23/18 09:58 106 H 16 100 02/23/18 08:00 99.0 F 86 18 100 02/23/18 07:17 86 02/23/18 07:00 99.0 F 02/23/18 06:00 14 02/23/18 05:00 98.8 F 02/23/18 04:00 13 02/23/18 02:00 13 02/23/18 00:00 99.0 F 15 Weight Admit Weight 127.7 kg Weight 123.5 kg Most Recent Monitor Data Heart Rate from ECG 79 NIBP 136/74 NIBP BP-Mean 95 Respiration from ECG 17 SpO2 100 I&O: 02/22/18 02/23/18 02/24/18 06:59 06:59 06:59 Intake Total 860.2 1211.9 60 Output Total 550 1300 50 Balance 310.2 -88.1 10 Result Diagrams: 02/23/18 04:52 02/23/18 04:52 <Jerry Lizama - Last Filed: 02/23/18 10:50> Phys Exam - Physical Examination Constitutional: NAD itubated and sedated HEENT: PERRLA distant adventitious breath sounds BL Cardiovascular: no significant murmur irregularly irregular Gastrointestinal: soft, non-tender Musculoskeletal: edema present trace edema BLLE GCS7 ([id number]) Deviation from normal: multiple areas of ecchymosis <Timothy,Jc - Last Filed: 02/23/18 09:07> Dx/Plan (1) Severe sepsis Code(s): A41.9 - SEPSIS, UNSPECIFIED ORGANISM; R65.20 - SEVERE SEPSIS WITHOUT SEPTIC SHOCK Status: Acute Plan: -pt presented with fever, tachycardia, hypotension, altered mentation, leukocytosis, elevated procalcitonin, lactic acidosis and UA suggestive of infection -pt responded well to IVF and did not require pressor support. IVF discontinued overnight due to pt's CHF and fluid overload. -pt continued on zosyn but received vancomyin and levaquin on day of arrival as well -initial blood cx from outside facility show G- rods, awaiting speciation -pt was intubated secondary to agitation and has been continued on ventilatory support and sedation -pt had sedation decreased yesterday but was not following commands -pulmonology recommendations greatly appreciated (2) UTI (urinary tract infection) Status: Acute QualifierTitle: Urinary tract infection type: site unspecified Plan: -initial UA at outside facility showed nitrites, WBCs, & many bacteria -continue zosyn and await urine culture results -pt has hx of pansensitive Proteus UTI. no known hx of MDR organisms (3) Acute exacerbation of CHF (congestive heart failure) Code(s): I50.9 - HEART FAILURE, UNSPECIFIED Status: Acute QualifierTitle: Heart failure type: unspecified Qualified Code(s): I50.9 - Heart failure, unspecified Plan: -pt has a history of CAD and afib but no known history of CHF. pt presents with pulmonary vascular congestion on CXR, lower extremity edema, and BNP > 3000. -cardiology recommendations greatly appreciated -TTE pending -pt received 120mg lasix IV on day of arrival, continue lasix 40 mg IV BID -strict I/O's and daily weights (4) Nocturnal seizures Code(s): G40.909 - EPILEPSY, UNSP, NOT INTRACTABLE, WITHOUT STATUS EPILEPTICUS Status: Acute Plan: -granddaughter reports history of nocturnal seizures well controlled on home tegretol. tegretol level therapeutic. pt reportedly missed a few doses of tegretol over the last couple of days. -continue to monitor closely and consider neurology consult if pt continues to experience seizure activity -ativan available PRN (5) Atrial fibrillation with RVR Code(s): I48.91 - UNSPECIFIED ATRIAL FIBRILLATION Status: Acute Plan: -chronic afib, pt went into afib with RVR yesterday and started on diltiazem gtt -rate overnight around 100 -pt was not on anticoagulation outpt, likely due to baseline mental status, functional capacity, and fall risk -cardiology recommendations greatly appreciated (6) Thrombocytopenia Code(s): D69.6 - THROMBOCYTOPENIA, UNSPECIFIED Status: Acute Plan: -slightly improved from yesterday indicating likely not HIT -resume heparin this AM -continue to monitor closely (7) Elevated troponin Code(s): R74.8 - ABNORMAL LEVELS OF OTHER SERUM ENZYMES Status: Acute Plan: -likely due to demand ischemia vs NSTEMI -cardiology recommendations appreciated (8) CKD (chronic kidney disease) stage 3, GFR 30-59 ml/min Code(s): N18.3 - CHRONIC KIDNEY DISEASE, STAGE 3 (MODERATE) Status: Acute Plan: -creatinine and GFR near baseline but rising -UOP improved from yesterday but not consistently >50cc/hr indicating pt possibly overall hypovolemic. resume IVF -continue to monitor closely (9) Diabetes mellitus Code(s): E11.9 - TYPE 2 DIABETES MELLITUS WITHOUT COMPLICATIONS Status: Acute Plan: -continue accuchecks and SSI (10) Alzheimer's dementia Code(s): G30.9 - ALZHEIMER'S DISEASE, UNSPECIFIED; F02.80 - DEMENTIA IN OTH DISEASES CLASSD ELSWHR W/O BEHAVRL DISTURB Status: Acute Plan: -at baseline pt is noted to have advanced Alzheimer's dementia - Plan Plan: disposition: Guarded. Possible extubation today, pulmonary management greatly appreciated. Continue abx. Cardiology recommendations appreciated regarding afib w/ RVR and likely new CHF. Continue to monitor closely. <Blane Aguirre - Last Filed: 02/23/18 09:07> Attending Addendum - Attending Addendum Date/Time: 02/23/18 1046 I personally evaluated the patient and discussed the management with Dr. Aguirre. I agree with the History, Examination, Assessment and Plan documented above with any addition or exceptions noted below. Patient continues to be on ventilator support. Continue on antibiotics for his gram negative susanne bacteremia. Cultures still pending, but fever curve downtrending .Continue Zosyn. He has never been adequately fluid resuscitated 30ml/kg, and his creatinine has had a near 50% increase during his time here. Urine output is minimal, and I expect that patient is still hypovolemic. He is at risk for fluid overload, but he is on ventilator and sats are well. I have encouraged some degree of fluid replacement but other staff has been resistant to give any replacement despite labs consistent with prerenal azotemia and anuria. His Afib RVR is better controlled on Dilt drip. Awaiting echo report. Wean from vent as tolerated. <Jerry Lizama - Last Filed: 02/23/18 10:50>
[2018-02-23 06:35] LABS: Anion Gap 15 mmol/L (10-20); BUN (Urea Nitrogen) 40 mg/dL (8.4-25.7); Calc. Creatinine Clearance 38 mL/min (70-130); Calcium 8.7 mg/dL (7.8-10.44); Carbon Dioxide 20 mmol/L (23-31); Chloride 108 mmol/L (98-107); Estimated GFR-MDRD 23; Glucose 97 mg/dL (83-110); Potassium 3.9 mmol/L (3.5-5.1); Sodium 139 mmol/L (136-145)
[2018-02-23 07:16] LABS: Hemoglobin 11.6 g/dL (14.0-18.0); Mean Corpuscular HGB CONC 31.9 g/dL (32.0-36.0); Mean Corpuscular Hemoglobin 30.3 pg (27.0-31.0); Mean Corpuscular Volume 95.1 fl (80.0-94.0); Platelet Count 100 thou/uL (130-400); RBC Distribution Width 13.2 % (11.5-14.5); Red Blood Cell (RBC) Count 3.83 mill/uL (4.70-6.10); White Blood Cell (WBC) Count 13.1 thou/uL (4.8-10.8)
[2018-02-23 07:18] LABS: Band 5 % (5-11); Lymphocytes 16 % (21-51); MDiff Complete? YES; Monocytes 16 % (0-10); Neutrophil 57 % (42-75); PLT Morphology Comment PLT DECR; Polychromasia SLIGHT = 2-3 cells (100X) (0-2/hpf); Reactive Lymphocytes 6 % (0-10)
[2018-02-23] MEDS: Pantoprazole 40 MG VIAL IVP SCH (08:29)
[2018-02-23] MEDS: carBAMazepine 200 MG TAB PER TUBE SCH ×2 (08:29→19:03)
[2018-02-23] MEDS: Heparin 5,000 UNITS/ML VIAL SC SCH ×2 (08:30→22:03)
[2018-02-23] MEDS ORDERED: Lactated Ringer's 1,000 ML IV SCH ×2 (08:32→09:17)
[2018-02-23] MEDS ORDERED: Sodium Chloride 0.45% 500 ML IV SCH (09:30)
--- NOTE | 2018-02-23 09:30 | PRG ---
DATE OF SERVICE: 02/23/2018 SERVICE: Pulmonary Medicine INTERVAL HISTORY: The patient is doing fantastic from a respiratory standpoint. He is breathing comfortably. He is Precedex. He is cool, calm and collected. There have not been any significant agitation, attempts at removing any devices. Mary catheter was removed. A condom catheter was placed. PHYSICAL EXAMINATION: VITAL SIGNS: Afebrile, pulse 86, blood pressure 123/76, respirations 21, saturation 100% on 23% FiO2 and a PEEP of 5. GENERAL: The patient is intubated and under the influence of a little sedation. HEENT: Normocephalic, atraumatic. Sclerae are white, conjunctivae pink. Oral mucosa is moist without lesions. LUNGS: Decent air entry. There is no prolonged expiratory phase or wheezing present. HEART: Normal rate, regular. ABDOMEN: Soft, nontender, nondistended. Bowel sounds are positive. MUSCULOSKELETAL: No cyanosis or clubbing. There is trace pitting in the bilateral lower extremities, but much improved. GENITOURINARY: No Mary. NEUROLOGIC: Grossly nonfocal. LABORATORY DATA: WBC 13.1, hemoglobin 11.6, platelets 100. INR 1.3. PH 7.32, pCO2 41, pO2 81. Creatinine 2.68 and up trending. Basic metabolic profile is otherwise unremarkable. Magnesium and phosphorus fall within the normal limits. ASSESSMENT: 1. Acute hypoxic respiratory failure, resolved. 2. Severe sepsis secondary to gram-negative susanne bacteremia. 3. Non-ST elevation myocardial infarction. 4. Chronic kidney disease with possible acute component. 5. Dementia, advanced. 6. Debility. DISCUSSION AND PLAN: The patient is going to be on a spontaneous breathing trial. When he meets criteria, extubation will be considered. Pulmonary Critical Care will continue to follow. He will certainly remain in the ICU. Once he is extubated, we will try to get rid of as many lines and tubes as possible to minimize his agitation. We are awaiting culture results from the outside facility. Lastly, Lasix will be interrupted as the patient is likely intravascularly depleted. I still do not think that he needs any IV fluids. We will try to minimize any injury to the kidneys. Critical care time: 30 minutes. [facility]ON HOSPITALJanina
[2018-02-23] MEDS ORDERED: Gabapentin 300 MG CAP PO SCH (10:00)
[2018-02-23] MEDS: Diltiazem HCl 125 MG, Admixture Fee 1 EACH in Sodium Chloride 0.9% 100 ML IVPB SCH (14:39)
[2018-02-23 15:24] LABS: Folate,Hemolysate 588.6 ng/mL (Not Estab.); Hematocrit 38.1 % (37.5-51.0); RBC Folate Test Component 1545 ng/mL (>498)
--- NOTE | 2018-02-23 17:08 | PDOC.CTH ---
Cardiology Progress Note - Subjective Pt extubated this am. Somnolent. HR improved off IV CCB. - ROS not able to obtain ROS - Objective Vital Signs Temp Pulse Resp Pulse Ox 02/23/18 16:00 98.1 F 02/23/18 12:00 98.9 F 98 02/23/18 09:58 106 H 16 100 02/23/18 08:00 99.0 F 86 18 100 02/23/18 07:17 86 02/23/18 07:00 99.0 F 02/23/18 06:00 14 Admit Weight 281 lb 8.485 oz Weight 272 lb 4.334 oz 02/22/18 02/23/18 02/24/18 06:59 06:59 06:59 Intake Total 860.2 1211.9 160 Output Total 550 1300 50 Balance 310.2 -88.1 110 - Physical Examination General/Neuro: NAD Neck: no JVD present Lungs: unlabored respirations Heart: other: (IRR) Abdomen: no HSM, NT/ND Extremities: + femoral B - Labs Result Diagrams: 02/23/18 04:52 02/23/18 04:52 Troponin/CKMB CK-MB (CK-2) 3.7 ng/mL (0-6.6) 02/21/18 14:26 Troponin I 0.330 ng/mL (< 0.028) H* 02/21/18 20:29 - Assessment/Plan 1. Sepsis 2. Afib with RVR 3. CAD 4. s/p CABG HR currently controlled. Pt currently on heparin Pt with issues with falls (twice last two weeks) per family. Will address NOAC' s with family. add metoprolol and titrate as needed Previously on atenolol.
[2018-02-23] MEDS ORDERED: Metoprolol Tartrate 25 MG TAB PO SCH (21:00)
[2018-02-23] MEDS: Gabapentin 300 MG CAP PO SCH (21:30)
[2018-02-24] MEDS: Piperacillin/Tazobactam 2.25 GM in Sodium Chloride 0.9% 100 ML IVPB SCH ×4 (00:05→18:34)
[2018-02-24] MEDS: Diltiazem HCl 125 MG, Admixture Fee 1 EACH in Sodium Chloride 0.9% 100 ML IVPB SCH ×3 (02:04→18:35)
[2018-02-24 05:20] LABS: Anion Gap 16 mmol/L (10-20); BUN (Urea Nitrogen) 42 mg/dL (8.4-25.7); Calc. Creatinine Clearance 39 mL/min (70-130); Carbon Dioxide 20 mmol/L (23-31); Chloride 109 mmol/L (98-107); Estimated GFR-MDRD 24; Glucose 99 mg/dL (83-110); Potassium 3.5 mmol/L (3.5-5.1); Sodium 141 mmol/L (136-145)
[2018-02-24 05:35] LABS: Band 5 % (5-11); Eosinophils 1 % (0-10); Hemoglobin 10.5 g/dL (14.0-18.0); Lymphocytes 15 % (21-51); MDiff Complete? YES; Mean Corpuscular HGB CONC 31.8 g/dL (32.0-36.0); Mean Corpuscular Hemoglobin 30.4 pg (27.0-31.0); Mean Corpuscular Volume 95.6 fl (80.0-94.0); Monocytes 12 % (0-10); Neutrophil 67 % (42-75); Platelet Count 124 thou/uL (130-400); RBC Distribution Width 13.2 % (11.5-14.5); Red Blood Cell (RBC) Count 3.44 mill/uL (4.70-6.10); White Blood Cell (WBC) Count 7.2 thou/uL (4.8-10.8)
[2018-02-24] MEDS: Labetalol HCl 100 MG/20 ML VIAL SLOW IVP PRN (06:07)
[2018-02-24] MEDS ORDERED: Lactated Ringer's 500 ML IV SCH (07:45)
--- NOTE | 2018-02-24 07:46 | PDOC.FM ---
- Subjective Subjective: Pt seen at bedside in NAD with granddaughter in room. SERGIO overnight, pt was transferred out of CCU to telemetry floor. Pt was continued on diltiazem gtt. Per granddaughter, pt is getting closer to baseline. She denies any acute complaints or problems. - Objective MAR Reviewed: Yes Vital Signs & Weight: Vital Signs (12 hours) Temp Pulse Resp BP BP Pulse Ox 02/24/18 07:24 100 02/24/18 06:07 119 H 199/92 H 02/24/18 03:52 98.5 F 108 H 18 170/85 H 96 02/24/18 00:39 100.1 F H 114 H 18 96 02/23/18 20:54 99.5 F 110 H 20 134/88 10 L 02/23/18 20:00 100.1 F H 114 H 18 95 Weight Admit Weight 127.7 kg Weight 126.099 kg Most Recent Monitor Data Heart Rate from ECG 120 NIBP 179/115 NIBP BP-Mean 131 Respiration from ECG 21 SpO2 97 I&O: 02/23/18 02/24/18 02/25/18 06:59 06:59 06:59 Intake Total 1211.9 1097.4 Output Total 1300 250 Balance -88.1 847.4 Result Diagrams: 02/24/18 04:28 02/24/18 04:28 <Blane Aguirre - Last Filed: 02/24/18 08:03> - Objective Vital Signs & Weight: Vital Signs (12 hours) Temp Pulse Resp BP BP Pulse Ox 02/24/18 07:24 100 02/24/18 06:07 119 H 199/92 H 02/24/18 03:52 98.5 F 108 H 18 170/85 H 96 02/24/18 00:39 100.1 F H 114 H 18 96 Weight Admit Weight 127.7 kg Weight 126.099 kg Most Recent Monitor Data Heart Rate from ECG 120 NIBP 179/115 NIBP BP-Mean 131 Respiration from ECG 21 SpO2 97 I&O: 02/23/18 02/24/18 02/25/18 06:59 06:59 06:59 Intake Total 1211.9 1097.4 Output Total 1300 250 Balance -88.1 847.4 Result Diagrams: 02/24/18 04:28 02/24/18 04:28 <LizamaJerry munson León - Last Filed: 02/24/18 09:01> Phys Exam - Physical Examination Constitutional: NAD HEENT: sclera anicteric Respiratory: no wheezing coarse upper airway noises heard throughout Cardiovascular: no significant murmur irregularly irregular, normal rate Gastrointestinal: soft Musculoskeletal: edema present trace edema BL LE Neurological: moves all 4 limbs does not answer questions Skin: cap refill <2 seconds Deviation from normal: multiple ecchymosis <TimothyBlane Boggs - Last Filed: 02/24/18 08:03> Dx/Plan (1) Severe sepsis Code(s): A41.9 - SEPSIS, UNSPECIFIED ORGANISM; R65.20 - SEVERE SEPSIS WITHOUT SEPTIC SHOCK Status: Acute Plan: -pt presented with fever, tachycardia, hypotension, altered mentation, leukocytosis, elevated procalcitonin, lactic acidosis and UA suggestive of infection -pt responded well to IVF and did not require pressor support. IVF discontinued overnight due to pt's CHF and fluid overload. -pt continued on zosyn but received vancomyin and levaquin on day of arrival as well -initial blood cx from outside facility show G- rods, awaiting speciation -pt was intubated secondary to agitation and was successfully extubated on 02/23 -pulmonology recommendations greatly appreciated (2) Atrial fibrillation with RVR Code(s): I48.91 - UNSPECIFIED ATRIAL FIBRILLATION Status: Acute Plan: -chronic afib, pt went into afib with RVR on 02/22 and started on diltiazem gtt -pt was not on anticoagulation outpt, likely due to baseline mental status, functional capacity, and fall risk -cardiology recommendations greatly appreciated -pt to likely transition to PO metoprolol but was unable to be titrated off of diltiazem gtt. will have formal speech therapy swallow evaluation and transition pt to oral medications as soon as possible. (3) UTI (urinary tract infection) Status: Acute QualifierTitle: Urinary tract infection type: site unspecified Plan: -initial UA at outside facility showed nitrites, WBCs, & many bacteria -continue zosyn and await urine culture results -pt has hx of pansensitive Proteus UTI. no known hx of MDR organisms (4) Acute exacerbation of CHF (congestive heart failure) Code(s): I50.9 - HEART FAILURE, UNSPECIFIED Status: Acute QualifierTitle: Heart failure type: unspecified Qualified Code(s): I50.9 - Heart failure, unspecified Plan: -pt has a history of CAD and afib but no known history of CHF. pt presents with pulmonary vascular congestion on CXR, lower extremity edema, and BNP > 3000. -cardiology recommendations greatly appreciated -TTE read pending -strict I/O's and daily weights (5) CKD (chronic kidney disease) stage 3, GFR 30-59 ml/min Code(s): N18.3 - CHRONIC KIDNEY DISEASE, STAGE 3 (MODERATE) Status: Acute Plan: -creatinine and GFR near baseline -UOP improved from yesterday but not consistently >50cc/hr indicating pt possibly overall hypovolemic. resume IVF with 500cc bolus this AM. -continue to monitor closely (6) Nocturnal seizures Code(s): G40.909 - EPILEPSY, UNSP, NOT INTRACTABLE, WITHOUT STATUS EPILEPTICUS Status: Acute Plan: -granddaughter reports history of nocturnal seizures well controlled on home tegretol. tegretol level therapeutic. pt reportedly missed a few doses of tegretol over the last couple of days. -continue to monitor closely and consider neurology consult if pt continues to experience seizure activity -ativan available PRN (7) Thrombocytopenia Code(s): D69.6 - THROMBOCYTOPENIA, UNSPECIFIED Status: Acute Plan: -slightly improved from yesterday indicating likely not HIT -continue heparin prophylaxis while hospitalized -continue to monitor closely (8) Elevated troponin Code(s): R74.8 - ABNORMAL LEVELS OF OTHER SERUM ENZYMES Status: Acute Plan: -likely due to demand ischemia vs NSTEMI -cardiology recommendations appreciated (9) Diabetes mellitus Code(s): E11.9 - TYPE 2 DIABETES MELLITUS WITHOUT COMPLICATIONS Status: Acute Plan: -continue accuchecks and SSI (10) Alzheimer's dementia Code(s): G30.9 - ALZHEIMER'S DISEASE, UNSPECIFIED; F02.80 - DEMENTIA IN OTH DISEASES CLASSD ELSWHR W/O BEHAVRL DISTURB Status: Acute Plan: -at baseline pt is noted to have advanced Alzheimer's dementia - Plan Plan: disposition: Pt stable. Obtain culture results from [facility] and tailor antibiotic therapy. Attempt transition to oral medications to control afib per cardiology. Specialist recommendations greatly appreciated. Granddaughter notes pt will not transition to NH and requests a hospital bed for their home. HH nursing already in place. CM assistance appreciated. Continue to monitor closely. <Blane Aguirre - Last Filed: 02/24/18 08:03> Attending Addendum - Attending Addendum Date/Time: 02/24/18 0900 I personally evaluated the patient and discussed the management with Dr. Aguirre. I agree with the History, Examination, Assessment and Plan documented above with any addition or exceptions noted below. Patient transferred out of CCU overnight. He is stable. BP and HR continue to be elevated when he is agitated. Back on diltiazem drip as he was unable to take Metoprolol due to concerns about swallow safety. Will have [employer] see patient today to hopefully clear for some sort of diet. Continue dilt drip for now and await further cardiology recs. Patient outside cultures growing E. coli, await sensitivities, but Zosyn should be adequate coverage. Fever curve continues to downtrend and WBC stable. His CHRIS is stable. 500ml bolus of fluids and will hopefully transition to PO hydration today. <Jerry Lizama R - Last Filed: 02/24/18 09:01>
[2018-02-24] MEDS: Heparin 5,000 UNITS/ML VIAL SC SCH (08:40)
[2018-02-24] MEDS: Pantoprazole 40 MG VIAL IVP SCH (08:40)
[2018-02-24] MEDS ORDERED: Prevnar 13-Val Conj/PF 0.5 ML SYRINGE IM ONE (09:00)
--- NOTE | 2018-02-24 09:44 | PDOC.CTH ---
Cardiology Progress Note - Subjective Pt somnolent today. Difficulty with taking po medications and difficulty with swallowing - ROS not able to obtain ROS - Objective Vital Signs Temp Pulse Resp BP BP Pulse Ox 02/24/18 08:00 98.4 F 70 24 H 177/96 H 100 02/24/18 07:24 100 02/24/18 06:07 119 H 199/92 H 02/24/18 03:52 98.5 F 108 H 18 170/85 H 96 02/24/18 00:39 100.1 F H 114 H 18 96 Admit Weight 281 lb 8.485 oz Weight 278 lb 02/23/18 02/24/18 02/25/18 06:59 06:59 06:59 Intake Total 1211.9 1097.4 Output Total 1300 250 Balance -88.1 847.4 - Physical Examination General/Neuro: NAD Neck: no JVD present Lungs: CTA, unlabored respirations Heart: other: (IRR) Abdomen: NT/ND Extremities: + femoral B - Telemetry Telemetry Rhythm: afib - Labs Result Diagrams: 02/24/18 04:28 02/24/18 04:28 Troponin/CKMB CK-MB (CK-2) 3.7 ng/mL (0-6.6) 02/21/18 14:26 Troponin I 0.330 ng/mL (< 0.028) H* 02/21/18 20:29 - Assessment/Plan 1. Sepsis 2. Afib with RVR 3. CAD 4. s/p CABG Spoke with granddaughter today. When pt is transitioning to home, will change to po meds (if swallowing or possible peg tube). They understand the risks and benefits. Feel he will be bed bound for an extended period. If he as some point is able to ambluate, will consider not taking ACT if susceptible to falls. Allergy to stins and ACEI, ARB not used secondary to renal function Change heparin to sq lovenox. Will discuss with pharmacy on dosing.
[2018-02-24] MEDS ORDERED: Enoxaparin Sodium 120 MG/0.8 ML SYRINGE SC SCH (10:30)
[2018-02-24] MEDS: carBAMazepine 200 MG TAB PER TUBE SCH (12:09)
[2018-02-24] MEDS: Gabapentin 300 MG CAP PO SCH ×2 (12:09→21:04)
[2018-02-24] MEDS: Acetaminophen 325 MG TAB PO PRN (12:10)
[2018-02-24] MEDS: Metoprolol Tartrate 25 MG TAB PO SCH ×2 (12:10→21:04)
[2018-02-24 12:49] VITALS: BMI 39.9
--- NOTE | 2018-02-24 13:13 | PRG ---
DATE OF SERVICE: 02/24/2018 SERVICE: Pulmonary Medicine. INTERVAL HISTORY: The patient really had an uneventful evening. He did well through the night and g ot a little agitated this morning. He has not been aggressive to any of the staff as of yet. He den ies any shortness of breath or chest discomfort. He is sleeping comfortably, but wakes up easily. PHYSICAL EXAMINATION: VITAL SIGNS: Afebrile, pulse 70, blood pressure 165/77, respirations 22, saturation 100% on 2 liters nasal cannula. GENERAL: The patient is awake, alert, no apparent distress. LUNGS: Decent air entry. There are crackles present dependently. No prolonged expiratory phase or wheezing is appreciated. HEART: Normal rate, regular. ABDOMEN: Soft. Nontender, nondistended. Bowel sounds are positive. MUSCULOSKELETAL: No cyanosis or clubbing. There is diffuse pitting edema of the bilateral lower ext remities and upper extremities. This is roughly symmetric. GENITOURINARY: No Mary. NEUROLOGIC: Grossly nonfocal. LABORATORY DATA: WBC 7.2, hemoglobin 10.5, platelets 124,000. Neutrophil count is normal. INR 1.3. Creatinine 2.58 and gently downtrending, BUN 42. Bicarbonate is stable at 20, anion gap is stable at 16. Sodium 141 and gently up trending. Urine strep antigen is negative. Blood cultures x2 and u rine culture unremarkable. ASSESSMENT: 1. Acute hypoxic respiratory failure, resolved. 2. Severe sepsis secondary to gram-negative susanne bacteremia, isolated at [facility]. 3. Ynk-[id number]-eokucckxr myocardial infarction. 4. Chronic kidney disease with possible acute component. 5. Dementia, advanced. 6. Debility. PLAN: We will provide him with p.r.n. Tylenol per request. We will stop his IV fluids and introduce Lasix. He may need a little bit of free water in order to prevent hypernatremia over the coming day s. Otherwise, he is moving in the right direction. Once we know what we are treating and for how lo ng to treat, the patient will be stable for transition out of the hospital. Hopefully, we will be ab le to get by with a p.o. regimen.
[2018-02-24] MEDS ORDERED: Furosemide 40 MG/4 ML VIAL SLOW IVP SCH (13:15)
[2018-02-24] MEDS: Dextrose 5% in Water 1,000 ML IV SCH (13:30)
[2018-02-24] MEDS: Haloperidol Lactate 5 MG/ML VIAL IM PRN ×2 (13:48→21:56)
[2018-02-24] MEDS: carBAMazepine 200 MG TAB PO SCH (17:55)
[2018-02-25] MEDS: Piperacillin/Tazobactam 2.25 GM in Sodium Chloride 0.9% 100 ML IVPB SCH ×2 (05:16)
[2018-02-25] MEDS: Labetalol HCl 100 MG/20 ML VIAL SLOW IVP PRN (05:19)
[2018-02-25 05:22] LABS: Anion Gap 18 mmol/L (10-20); BUN (Urea Nitrogen) 37 mg/dL (8.4-25.7); Calc. Creatinine Clearance 42 mL/min (70-130); Carbon Dioxide 19 mmol/L (23-31); Chloride 109 mmol/L (98-107); Estimated GFR-MDRD 25; Glucose 108 mg/dL (83-110); Potassium 3.3 mmol/L (3.5-5.1); Sodium 143 mmol/L (136-145)
[2018-02-25 06:14] LABS: Band 4 % (5-11); Eosinophils 1 % (0-10); Hemoglobin 10.4 g/dL (14.0-18.0); Lymphocytes 27 % (21-51); MDiff Complete? YES; Mean Corpuscular HGB CONC 31.5 g/dL (32.0-36.0); Mean Corpuscular Hemoglobin 29.9 pg (27.0-31.0); Mean Corpuscular Volume 94.8 fl (80.0-94.0); Mean Platelet Volume 9.4 fL (7.4-10.4); Monocytes 10 % (0-10); Neutrophil 58 % (42-75); PLT Morphology Comment Appears Decreased; Platelet Count 108 thou/uL (130-400); RBC Distribution Width 13.1 % (11.5-14.5); Red Blood Cell (RBC) Count 3.49 mill/uL (4.70-6.10); White Blood Cell (WBC) Count 6.8 thou/uL (4.8-10.8)
--- NOTE | 2018-02-25 07:47 | PDOC.FM ---
- Subjective Subjective: Pt doing well this morning. Per granddaughter there were no acute events over night. No new symptoms. PT tolerating PO. Pt is at mental baseline, however not ambulating as easy as normal - Objective MAR Reviewed: Yes Vital Signs & Weight: Vital Signs (12 hours) Temp Pulse Resp BP BP Pulse Ox 02/25/18 07:05 98.1 F 72 18 212/95 H 99 02/25/18 05:19 73 184/85 H 02/25/18 03:45 97.5 F L 73 18 192/95 H 97 02/24/18 20:20 97.7 F 69 14 163/89 H 97 02/24/18 20:07 97.7 F 69 14 97 Weight Admit Weight 127.7 kg Weight 127.097 kg Most Recent Monitor Data Heart Rate from ECG 120 NIBP 179/115 NIBP BP-Mean 131 Respiration from ECG 21 SpO2 97 I&O: 02/24/18 02/25/18 02/26/18 06:59 06:59 06:59 Intake Total 1097.4 564 Output Total 250 1 Balance 847.4 563 Result Diagrams: 02/25/18 04:26 02/25/18 04:26 <Blane Aguilar - Last Filed: 02/25/18 07:45> - Objective Vital Signs & Weight: Vital Signs (12 hours) Temp Pulse Resp BP BP Pulse Ox 02/25/18 07:05 98.1 F 72 18 212/95 H 99 02/25/18 05:19 73 184/85 H 02/25/18 03:45 97.5 F L 73 18 192/95 H 97 Weight Admit Weight 127.7 kg Weight 127.097 kg Most Recent Monitor Data Heart Rate from ECG 120 NIBP 179/115 NIBP BP-Mean 131 Respiration from ECG 21 SpO2 97 I&O: 02/24/18 02/25/18 02/26/18 06:59 06:59 06:59 Intake Total 1097.4 564 Output Total 250 1 Balance 847.4 563 Result Diagrams: 02/25/18 04:26 02/25/18 04:26 <Ghislaine Story - Last Filed: 02/25/18 09:47> Phys Exam - Physical Examination Constitutional: NAD HEENT: PERRLA, moist MMs Neck: no JVD Respiratory: clear to auscultation bilateral Cardiovascular: RRR, no significant murmur Gastrointestinal: soft, non-tender, no distention, positive bowel sounds Musculoskeletal: no edema Neurological: moves all 4 limbs Does not interact or answer questions Deviation from normal: Does not interact or answer questions as above Skin: no rash Deviation from normal: multiple eccymosis on neck and forehead <Blane Aguilar - Last Filed: 02/25/18 07:45> Dx/Plan (1) Acute exacerbation of CHF (congestive heart failure) Code(s): I50.9 - HEART FAILURE, UNSPECIFIED Status: Acute QualifierTitle: Heart failure type: unspecified Qualified Code(s): I50.9 - Heart failure, unspecified (2) Atrial fibrillation with RVR Code(s): I48.91 - UNSPECIFIED ATRIAL FIBRILLATION Status: Acute (3) CKD (chronic kidney disease) stage 3, GFR 30-59 ml/min Code(s): N18.3 - CHRONIC KIDNEY DISEASE, STAGE 3 (MODERATE) Status: Acute (4) Diabetes mellitus Code(s): E11.9 - TYPE 2 DIABETES MELLITUS WITHOUT COMPLICATIONS Status: Acute (5) Nocturnal seizures Code(s): G40.909 - EPILEPSY, UNSP, NOT INTRACTABLE, WITHOUT STATUS EPILEPTICUS Status: Acute (6) Severe sepsis Code(s): A41.9 - SEPSIS, UNSPECIFIED ORGANISM; R65.20 - SEVERE SEPSIS WITHOUT SEPTIC SHOCK Status: Acute (7) Thrombocytopenia Code(s): D69.6 - THROMBOCYTOPENIA, UNSPECIFIED Status: Acute (8) UTI (urinary tract infection) Status: Acute QualifierTitle: Urinary tract infection type: site unspecified - Plan Plan: Severe sepsis - pt much improved and almost to baseline - Will transition to PO abx today, cultures show [place] sensitive e coli Afib - chronic and currently rate controlled. - Will not anticoagulate dt mental status/fall risk - continue PO metoprolol UTI - source of sepsis. Treat w/abx as above CHF exacerbation - pt appears to be euvolemic and does not have increased O2 demand CHRIS on CKD III - Cr is improving, though not currently at baseline - continue PO hydration Nocturnal seizures - home tegretol - ativan PRN - no seizure activity over night thrombocytopenia - Down from yesterday, however still above 100 - Consider following in outpatient setting - low concern for HIT DM - continue home meds. accucheck ACHS. SSI Alzheimer's Dementia - advanced AD at baseline Dispo: pt appears to be at baseline and sepsis has resolved. Transition to oral abx and ready for dc with out pt follow up. <Blane Aguilar - Last Filed: 02/25/18 07:45> Attending Addendum - Attending Addendum Date/Time: 02/25/18945 I personally evaluated the patient and discussed the management with Dr. Aguilar. I agree with the History, Examination, Assessment and Plan documented above with any addition or exceptions noted below. The patient became agitated overnight requiring a dose of haldol. He is now sleeping comfortably. Will transition off diltiazem drip and onto PO diltiazem. If patient tolerates this today, likely home tomorrow. <Ghislaine Story - Last Filed: 02/25/18 09:47>
[2018-02-25] MEDS: Furosemide 40 MG/4 ML VIAL SLOW IVP SCH (08:05)
[2018-02-25] MEDS: Pantoprazole 40 MG VIAL IVP SCH (08:06)
[2018-02-25] MEDS: carBAMazepine 200 MG TAB PO SCH ×2 (08:08→17:03)
[2018-02-25] MEDS: Potassium Chloride 20 MEQ in Premix Bag 1 BAG IVPB SCH ×2 (08:08→10:15)
[2018-02-25] MEDS: Metoprolol Tartrate 25 MG TAB PO SCH (08:09)
[2018-02-25] MEDS: Gabapentin 300 MG CAP PO SCH ×2 (08:09→20:51)
[2018-02-25] MEDS: Diltiazem HCl 125 MG, Admixture Fee 1 EACH in Sodium Chloride 0.9% 100 ML IVPB SCH (08:47)
[2018-02-25] MEDS ORDERED: Enoxaparin Sodium 120 MG/0.8 ML SYRINGE SC SCH (09:00)
--- NOTE | 2018-02-25 12:35 | PRG ---
DATE OF SERVICE: 02/25/2018 SUBJECTIVE: Ilya is a morbidly obese gentleman, demented, who is short of breath. OBJECTIVE: VITAL SIGNS: Sats are 99 on 2 liters, respiration rate 18, temperature 98, blood pressure is 220/80. CHEST: Decreased breath sounds without any wheezing. CARDIAC: Normal S1, S2, no gallops. ABDOMEN: No masses. LABORATORY DATA: Creatinine 2.45. White count is 6000, H and H 10 and 33, platelet count 108. IMPRESSION: Morbid obesity, recurrent aspiration, sleep apnea, DO NOT RESUSCITATE. PLAN: Continue antibiotics, nebulizer treatments and supportive care. We will follow.
[2018-02-25] MEDS ORDERED: Metoprolol Tartrate 25 MG TAB PO SCH (14:45)
[2018-02-25] MEDS: Dextrose 5% in Water 1,000 ML IV SCH (15:21)
[2018-02-25] MEDS: Haloperidol Lactate 5 MG/ML VIAL IM PRN (17:04)
[2018-02-25] MEDS: Metoprolol Tartrate 50 MG TAB PO SCH (20:52)
[2018-02-25] MEDS: Acetaminophen 325 MG TAB PO PRN (20:52)
[2018-02-26 05:18] LABS: Anion Gap 14 mmol/L (10-20); BUN (Urea Nitrogen) 30 mg/dL (8.4-25.7); Calc. Creatinine Clearance 51 mL/min (70-130); Calcium 9.3 mg/dL (7.8-10.44); Carbon Dioxide 26 mmol/L (23-31); Chloride 107 mmol/L (98-107); Estimated GFR-MDRD 31; Glucose 145 mg/dL (83-110); Potassium 3.2 mmol/L (3.5-5.1); Sodium 144 mmol/L (136-145)
[2018-02-26 06:01] LABS: Hemoglobin 10.4 g/dL (14.0-18.0); MDiff Complete? YES; Mean Corpuscular HGB CONC 32.9 g/dL (32.0-36.0); Mean Corpuscular Hemoglobin 30.8 pg (27.0-31.0); Mean Corpuscular Volume 93.8 fl (80.0-94.0); Mean Platelet Volume 9.2 fL (7.4-10.4); Platelet Count 135 thou/uL (130-400); Red Blood Cell (RBC) Count 3.38 mill/uL (4.70-6.10); White Blood Cell (WBC) Count 7.3 thou/uL (4.8-10.8)
[2018-02-26 06:02] LABS: Band 3 % (5-11); Eosinophils 1 % (0-10); Lymphocytes 21 % (21-51); Metamyelocyte 1 % (0-0); Monocytes 14 % (0-10); Neutrophil 60 % (42-75)
--- NOTE | 2018-02-26 07:57 | PDOC.FM ---
- Subjective Subjective: Pt at baseline this morning, somewhat agitated. He had difficulty sleeping last night. Since dc'ing dilt yesterday he has been in and out of RVR. There are no new complaints/symptoms this morning - Objective MAR Reviewed: Yes Vital Signs & Weight: Vital Signs (12 hours) Temp Pulse Resp BP Pulse Ox 02/26/18 04:00 98.1 F 103 H 22 H 140/96 H 99 02/26/18 02:45 92 L 02/25/18 20:50 100.0 F H 114 H 22 H 169/87 H 93 L Weight Admit Weight 127.7 kg Weight 126.722 kg Most Recent Monitor Data Heart Rate from ECG 120 NIBP 179/115 NIBP BP-Mean 131 Respiration from ECG 21 SpO2 97 I&O: 02/25/18 02/26/18 02/27/18 06:59 06:59 06:59 Intake Total 564 1496 Output Total 1 Balance 563 1496 Result Diagrams: 02/26/18 04:33 02/26/18 04:32 EKG Reviewed by me: Yes (Tele - afib w/rate 100-130) <Blane Aguilar - Last Filed: 02/26/18 07:56> - Objective Vital Signs & Weight: Vital Signs (12 hours) Temp Pulse Resp BP Pulse Ox 02/26/18 08:45 97.8 F 106 H 20 95 02/26/18 08:30 99.9 F H 120 H 20 172/102 H 94 L 02/26/18 04:00 98.1 F 103 H 22 H 140/96 H 99 Weight Admit Weight 127.7 kg Weight 126.722 kg Most Recent Monitor Data Heart Rate from ECG 120 NIBP 179/115 NIBP BP-Mean 131 Respiration from ECG 21 SpO2 97 I&O: 02/25/18 02/26/18 02/27/18 06:59 06:59 06:59 Intake Total 564 1496 Output Total 1 Balance 563 1496 Result Diagrams: 02/26/18 04:33 02/26/18 04:32 <Ghislaine Story - Last Filed: 02/26/18 15:44> Phys Exam - Physical Examination Constitutional: NAD HEENT: moist MMs Neck: no JVD, full ROM Respiratory: clear to auscultation bilateral Cardiovascular: no significant murmur irregularly irregular Gastrointestinal: soft, non-tender, no distention Musculoskeletal: no edema Neurological: moves all 4 limbs Deviation from normal: severe dementia Deviation from normal: multiple ecchymosis <Blane Aguilar - Last Filed: 02/26/18 07:56> Dx/Plan (1) Acute exacerbation of CHF (congestive heart failure) Code(s): I50.9 - HEART FAILURE, UNSPECIFIED Status: Acute QualifierTitle: Heart failure type: unspecified Qualified Code(s): I50.9 - Heart failure, unspecified (2) Atrial fibrillation with RVR Code(s): I48.91 - UNSPECIFIED ATRIAL FIBRILLATION Status: Acute (3) CKD (chronic kidney disease) stage 3, GFR 30-59 ml/min Code(s): N18.3 - CHRONIC KIDNEY DISEASE, STAGE 3 (MODERATE) Status: Acute (4) Diabetes mellitus Code(s): E11.9 - TYPE 2 DIABETES MELLITUS WITHOUT COMPLICATIONS Status: Acute (5) Nocturnal seizures Code(s): G40.909 - EPILEPSY, UNSP, NOT INTRACTABLE, WITHOUT STATUS EPILEPTICUS Status: Acute (6) Severe sepsis Code(s): A41.9 - SEPSIS, UNSPECIFIED ORGANISM; R65.20 - SEVERE SEPSIS WITHOUT SEPTIC SHOCK Status: Acute (7) Thrombocytopenia Code(s): D69.6 - THROMBOCYTOPENIA, UNSPECIFIED Status: Acute (8) UTI (urinary tract infection) Status: Acute QualifierTitle: Urinary tract infection type: site unspecified - Plan Plan: Afib - after stopping dilt rate continued to rise over night. Consider starting PO dilt today. Cards has been consulted appreciate recommendation Severe sepsis - pt at baseline, transitioned to PO meds yesterday. Continue for 7 days UTI - source of sepsis. Treat w/abx as above CHF exacerbation - pt appears to be euvolemic and does not have increased O2 demand CHRIS on CKD III - Cr is improving, though not currently at baseline - continue PO hydration Nocturnal seizures - home tegretol - ativan PRN - no seizure activity over night thrombocytopenia - Down from yesterday, however still above 100 - Consider following in outpatient setting - low concern for HIT DM - continue home meds. accucheck ACHS. SSI Alzheimer's Dementia - advanced AD at baseline Dispo: pt appears to be at baseline and sepsis has resolved. DC pending rate control . <Blane Aguilar - Last Filed: 02/26/18 07:56> Attending Addendum - Attending Addendum Date/Time: 02/26/18 5506 I personally evaluated the patient and discussed the management with Dr. Aguilar. I agree with the History, Examination, Assessment and Plan documented above with any addition or exceptions noted below. The patient became agitated again overnight and these episodes have escalated since his has been in the hospital. His family strongly wants to take him home. He had A. fib with rVR last night. His heart rate is staying in the low 100's currently. Discussed with cardiology who made recs and have ok'd him to go home with f/u with cardiology in 1 week. <Ghislaine Story - Last Filed: 02/26/18 15:44>
[2018-02-26] MEDS ORDERED: Magnesium Sulfate 2 GM in Sodium Chloride 0.9% 100 ML IVPB SCH (08:00)
[2018-02-26] MEDS ORDERED: Potassium Chloride 40 MEQ in Premix Bag 1 BAG IVPB SCH (08:00)
[2018-02-26] MEDS ORDERED: Magnesium 2 GM/NS 0.9% 100 ML 2 GM in Premix Bag 1 BAG IVPB SCH (08:00)
[2018-02-26] MEDS: carBAMazepine 200 MG TAB PO SCH (08:15)
[2018-02-26] MEDS: Metoprolol Tartrate 50 MG TAB PO SCH (08:15)
[2018-02-26] MEDS: Gabapentin 300 MG CAP PO SCH (08:15)
[2018-02-26] MEDS: Furosemide 40 MG/4 ML VIAL SLOW IVP SCH (08:16)
[2018-02-26] MEDS: Potassium Chloride 20 MEQ in Premix Bag 1 BAG IVPB SCH ×2 (08:17→10:53)
[2018-02-26] MEDS ORDERED: Enoxaparin Sodium 120 MG/0.8 ML SYRINGE SC SCH (09:00)
--- NOTE | 2018-02-26 11:09 | PDOC.EVN ---
Event Note - Event Note Event Note: Pt has a new dx of CHF, his is being dc'd on metoprolol tartrate rather than succinate dt his need to have pills crushed
[2018-02-26 11:35] VITALS: TEMP 97.8
--- NOTE | 2018-02-26 13:04 | PRG ---
DATE OF SERVICE: 02/26/2018 SUBJECTIVE: Demented gentleman in no distress. OBJECTIVE: VITAL SIGNS: Temperature 98, pulse 106, respiratory rate 20, blood pressure 172/102. CHEST: Decreased breath sounds without any wheezing. CARDIAC: Normal S1, S2, no gallops. ABDOMEN: Soft without masses. LABORATORY DATA: White count 7000, H&H is 10 and 30, platelet count 35, creatinine 2.0. IMPRESSION: 1. Morbid obesity. 2. Dementia. 3. DNR. 4. Congestive heart failure. 5. Atrial fibrillation. PLAN: At this stage, continue supportive care.
[2018-02-26] MEDS: Dextrose 5% in Water 1,000 ML IV SCH (16:03)
[2018-02-26 19:42] VITALS: BP 153/70
--- NOTE | 2018-02-26 19:43 | DIS-2 ---
DATE OF ADMISSION: 02/21/2018 DATE OF DISCHARGE: 02/26/2018 RESIDENT: Blane Aguilar D.O. ADMITTING ATTENDING: Nubia Mancuso M.D. DISCHARGE ATTENDING: Ghislaine Story M.D. CONSULTATIONS: Cardiology, Dr. Corcoran, and Pulmonology, Dr. Jackson. PROCEDURES: Intubation on 02/21/2018, extubation on 02/23/2018, echo on 02/22/2018, results still pe nding. PRIMARY DIAGNOSIS: Severe sepsis secondary to urinary tract infection. SECONDARY DIAGNOSES: 1. Lactic acidosis. 2. Urinary tract infection. 3. Acute exacerbation of congestive heart failure. 4. Atrial fibrillation with rapid ventricular response. 5. Nocturnal seizures. 6. Chronic kidney disease 3. 7. Macrocytic anemia. 8. Diabetes mellitus type 2. 9. Alzheimer dementia. DISCHARGE MEDICATIONS: Aspirin 81 p.o. daily, vitamin B12 1000 mcg IM every 7 days, atenolol 25 mg p .o. daily, donepezil 10 mg p.o. daily, duloxetine 60 mg p.o. at bedtime, Trulicity 1.5 mg subcutaneou sly q.7 days, gabapentin 900 mg p.o. q.p.m., Zetia 10 mg p.o. daily, memantine 20 mg p.o. daily, joshua pentin 300 mg q.a.m., ropinirole 6 mg p.o. q.p.m., carbamazepine 300 mg p.o. b.i.d., ropinirole 2 mg q.a.m., duloxetine 30 mg p.o. q.a.m., Synthroid 75 mcg p.o. daily, metoprolol tartrate 50 mg p.o. b.i .d. and Levaquin 750 mg p.o. daily x6 days. DISCONTINUED MEDICATIONS: None. HOSPITAL COURSE: This is an 82-year-old male who presented to the emergency room as a transfer from [facility] in [place] due to previously diagnosed severe sepsis. At the time of diagnosis of se psis, the patient had blood pressure of 83/59, tachycardic at 116, respiratory rate was 23, oxygen sa t was 96% on room air and a temperature of 104 rectal. EKG showed atrial fibrillation with rate in t he 120s and right bundle branch block, lactate at time of admission was 4.3 and a BNP was 3122. The patient had a white count of 13 and a UA suggestive of infection, nitrites positive, wbcs 10-19 and m any bacteria. The patient at the time of admission was intubated due to being combative and not allo wing treatment and improved with medical equipment. He was fluid resuscitated in the emergency room and started on broad broad-spectrum IV antibiotics, Zosyn, and vanc. While in the emergency room, susu phan self extubated and had to be reintubated and sedated. He was sedated with fentanyl due to low blood pressure, not tolerating propofol. On the first day of admission, the patient continued to have fever up to 103 degrees Fahrenheit; riddle rik, blood pressure recovered and was actually beginning to be hypertensive to pressures of 196/97. At this point, it is noted that the patient had kidney injury. His creatinine was 2.17. The patient has suspected CHF due to the elevated BNP; however, due to the severe sepsis, the patient clearly ne eds fluid. On this day, the blood culture from the [facility] show some gram negative rods with sensitivity still pending. It is also noted that the patient did appear to have extravascu lar fluid and that he had pulmonary vascular congestion and some lower extremity edema, so he was add itionally given Lasix and with strict I&O monitoring to monitor volume status. Home medications will be started in particular Tegretol due to the patient's known history of nocturnal seizures. On second day of admission, the patient remained intubated and converted into atrial fibrillation wit h RVR requiring diltiazem drip. Regarding the infection, his blood pressure is stabilized and as did his temperature kidney function, on the second day of admission, continued to worsen with a creatini ne of 2.68. The patient was maintained on broad-spectrum antibiotics while awaiting sensitivities. It was also noted the patient had elevated troponins as high as 0.3. This was thought to be a result of demand ischemia in the setting of heart failure and atrial fibrillation with RVR; however, the susu phan was treated with therapeutic Lovenox. On the next day of admission, patient was extubated and sedation was discontinued. He gradually retu rned to his baseline which per her granddaughter is typically not interactive and A&O x0. Heart rate was well controlled on diltiazem drip. His blood pressures continued to remain elevated as high as 109/92 however, typically in the 140s to 160 range. The temperatures also stayed under the fever ran ge. Regarding his CHRIS, this began to improve with a creatinine 2.58 on the day. Vancomycin and Zosy n were continued due to the lack of sensitivities. On the next day of admission, sensitivities has b een found pansensitive E. coli. The patient was moved over to p.o. antibiotics as well as discontinu ation of the diltiazem drip. He was restarted on his p.o. metoprolol. PHYSICAL EXAMINATION: Vital signs with the exception of blood pressure remained stable. Blood press ure remained periodically elevated into the 190s; however, typically in 150-160 range systolic. He w as at his mental baseline for the majority of the day. Over the course of this day. The patient did gradually increase after the diltiazem was discontinued as high as 130s; however, typically in the 1 00-110 range, as the patient remained in atrial fibrillation. On the following day, the patient remained at his mental baseline. Blood pressure became more contro lled. The patient had been restarted on metoprolol day prior. It was determined that the patient wa s safe to go home after discussion with Cardiology on his normal metoprolol with an additional dose o f metoprolol available if the patient's heart rate were to go below 120. The patient did have follow up cardiology appointment with a normal scroll assembler, Dr. Orr in the following week. On date of d ischarge, her creatinine had returned to close to baseline of 2.05. All chronic problems remained st able. DISPOSITION: Stable. DISCHARGE INSTRUCTIONS: 1. Location: Home. 2. Diet: Heart healthy, mechanical soft. 3. Activity: Fall precautions, ambulate with help. 4. Followup: Follow up with PCP in 1 week with Cardiology, Dr. Orr as previously scheduled.
[2018-02-26] MEDS ORDERED: Metoprolol Tartrate 50 MG TAB PO SCH (21:00)
--- NOTE | 2018-03-01 11:22 | PQF ---
EPIFANIO JIANG KATHERINE MD [id number] CLINICAL DOCUMENTATION CLARIFICATION FORM: POST DISCHARGE DATE: 03/01/2018 ATTN: Dr. Story Please exercise your independent, professional judgment in responding to the clarification form. Clinical indicators are provided on the bottom of this form for your review Please check appropriate box(s): HEART FAILURE: A. TYPE: [ ] Systolic / HFrEF [ ] Diastolic / HFpEF [ ] Combined Systolic / Diastolic B. ACUITY [ ] Acute [ ] Acute on Chronic [ ] Chronic [ ] Other diagnosis (please specify) [ ] Unable to determine In addition, please specify: Present on Admission (POA): [ ] Yes [ ] No [ ] Unable to determine For continuity of documentation, please document condition throughout progress notes and discharge summary. Thank You. CLINICAL INDICATORS - SIGNS / SYMPTOMS / LABS (per progress notes/consultation) Ejection Fraction = 40-45% (per 10/2016 echocardiogram) with moderate mitral regurgitation, mild tricuspid regurgitation and evidence for diastolic dysfunction. Acute hypoxic respiratory failure. Elevated BNP 3670.2 on admission. CXR: Hazy increased density in left base with partial obscuration of the left hemidiaphragm. Cardiomegaly with vascular congestion and opacification of both lung bases again noted. RISKS: (per H&P/progress notes) History of CAD s/p 4 vessel CABG. CKD Stage III. Hypertension TREATMENTS: (per progress notes) Cardiac monitoring. IV Lasix 40 mg. Oxygen (This form is maintained as a part of the permanent medical record) 2014 [employer]. All Rights Reserved [email or web address] [phone] [email or web address]
== END 2018-02-26 13:45 | disposition home or self-care (01) | DRG 871 ==
LOC: ERS 14:04 → CCU 16:56 → 2NO 02-23 20:56
PROVIDERS: ADMIT Family Medicine; ATTEND Family Medicine
PROC: 0BH17EZ Insertion of Endotracheal Airway into Trachea, Via Natural or Artificial Opening (ICD-10-PCS; principal; 2018-02-21)
PROC: 5A1945Z Respiratory Ventilation, 24-96 Consecutive Hours (ICD-10-PCS; 2018-02-21)
DX: A41.9 Sepsis, unspecified organism (principal); J96.01 Acute respiratory failure with hypoxia; E87.2 Acidosis; N39.0 Urinary tract infection, site not specified; I13.0 Hypertensive heart and chronic kidney disease with heart failure and stage 1 through stage 4 chronic kidney disease, or unspecified chronic kidney disease; Z68.41 Body mass index [BMI] 40.0-44.9, adult; I24.8 Other forms of acute ischemic heart disease; N17.9 Acute kidney failure, unspecified; R65.20 Severe sepsis without septic shock; I48.2 Chronic atrial fibrillation; E11.22 Type 2 diabetes mellitus with diabetic chronic kidney disease; N18.3 Chronic kidney disease, stage 3 (moderate); G30.9 Alzheimer's disease, unspecified; I50.9 Heart failure, unspecified; F02.80 Dementia in other diseases classified elsewhere, unspecified severity, without behavioral disturbance, psychotic disturbance, mood disturbance, and anxiety; I25.10 Atherosclerotic heart disease of native coronary artery without angina pectoris; E78.5 Hyperlipidemia, unspecified; E66.01 Morbid (severe) obesity due to excess calories; G40.909 Epilepsy, unspecified, not intractable, without status epilepticus; D69.6 Thrombocytopenia, unspecified; Z66 Do not resuscitate; Z91.81 History of falling; Z87.891 Personal history of nicotine dependence; Z95.1 Presence of aortocoronary bypass graft; Z91.048 Other nonmedicinal substance allergy status; Z79.82 Long term (current) use of aspirin; Z79.899 Other long term (current) drug therapy; Z96.643 Presence of artificial hip joint, bilateral
CPT/HCPCS: 36415; 36416; 71045; 80048; 80053; 80156; 81003; 81015; 82553; 82607; 82747; 82805; 83605; 83690; 83735; 83880; 84100; 84145; 84484; 85025; 85520; 85610; 85730; 87040; 87086; 87899; 90471; 90670; 93005; 93306; 93798; 94002; 94003; 96365; 96367; 96372; 96375; A4216; C9113; G0009; G8978-GP-CN; G8979-GP-CL; G8987-GO-CN; G8988-GO-CN; G8989-GO-CN; G8996-GN-CK; G8997-GN-CK; J1160; J1630; J1644; J1650; J1940; J1953; J1956; J2060; J2543; J2704; J3010; J3475; J3480; J7050